=== PATIENT | male | born 1960 | race Two or more races ===

== ENCOUNTER 2017-09-26 14:14 | Emergency (ER) | payer OTHER ==
[~2017-09-26] VITALS: Ht 165.1 cm; Wt 69.4 kg
[~2017-09-26 14:14] MED LIST: AUGMENTIN 875-1 EAC1 ORAL; IBUPROFEN400 MG ORAL; NEXAFED30 MG ORAL; NORCO 5-325 TA1 EACH ORAL
[2017-09-26] MEDS ORDERED: COLACE100 MG ORAL (14:57)
--- NOTE | 2017-09-26 15:01 | Emergency Room Report ---
History of Present Illness General Chief Complaint: General Complaint Source: Patient Present Illness HPI Patient is a 57-year-old male who presented after increased discomfort to his hernias. Patient states that his hernias had been worsened after recent upper respiratory infection where he was having increased cough. Patient denies any current cough. He states that the pain had recurred somewhat subsided. Patient states that his hernias reduce when he lies down flat however when he stands he noticed more discomfort. He denied any fever. He denied any vomiting.The patient denies smoking. He denies heavy lifting Allergies: Coded Allergies: No Known Allergies (Unverified , 06/22/16) Patient History Past Medical History: see triage record Reviewed Nursing Documentation: PMH: Agreed; PSxH: Agreed Nursing Documentation-PMH Past Medical History: No History, Except For Hx Gastrointestinal Problems: Yes - Liver cirrhosis, hernia repair Review of Systems All Other Systems: negative except mentioned in HPI Physical Exam Vital Signs Date Time Temp Pulse Resp B/P (MAP) Pulse Ox O2 Delivery O2 Flow Rate FiO2 09/26/17 14:32 98.6 89 16 127/78 97 Room Air 98.6 Sp02 EP Interpretation: reviewed, normal General Appearance: normal inspection, well appearing, no apparent distress, alert, GCS 15 Head: atraumatic ENT: normal ENT inspection, hearing grossly normal, normal voice Neck: normal inspection, full range of motion, supple, no bony tend Respiratory: normal inspection, lungs clear, normal breath sounds, no respiratory distress, no retraction, no wheezing Cardiovascular #1: regular rate, rhythm, no edema Gastrointestinal: normal inspection, normal bowel sounds, non tender, soft, no guarding, hernia - bilateral inguinal hernia easily reducible without any evident erythema, bowel sounds normal Genitourinary: no CVA tenderness Musculoskeletal: normal inspection, back normal, normal range of motion Neurologic: normal inspection, alert, oriented x3, responsive, district medical examiner III-XII nml as tested, speech normal Psychiatric: normal inspection, judgement/insight normal, mood/affect normal Skin: normal inspection, normal color, no rash Medical Decision Making Diagnostic Impression: Primary Impression: Bilateral inguinal hernia ER Course Patient presented for abdominal pain. Differential diagnoses included ischemic bowel, appendicitis, perforated viscus, abdominal aortic aneurysm, inferior myocardial infarction, viral gastroenteritis, incarcerated hernia. Patient has a benign exam and does not appear to require any further imaging or laboratory testing at this time. The patient has evident bilateral inguinal hernias. His BNP. Easily reducible and show no evidence of incarceration or strangulation. The patient is advised to follow-up with his primary care physician for surgical referral Last Vital Signs Date Time Temp Pulse Resp B/P (MAP) Pulse Ox O2 Delivery O2 Flow Rate FiO2 09/26/17 14:32 98.6 89 16 127/78 97 Room Air 98.6 Status: improved Disposition: HOME, SELF-CARE Condition: Stable Scripts Docusate Sodium* (COLACE*) 100 Mg Capsule 100 MG ORAL TWICE A DAY, #60 CAP Prov: Sudarshan Orlando 09/26/17 Patient Instructions: Inguinal Hernia, Adult Sudarshan Orlando Sep 26, 2017 15:01
[2017-09-26 15:04] VITALS: BP 124/79
[2017-09-26 15:12] LABS: APPEARANCE,URINE CLEAR; BILIRUBIN, URINE NEGATIVE (NEGATIVE); GLUCOSE, URINE (UA) NEGATIVE (NEGATIVE); KETONES,URINE NEGATIVE (NEGATIVE); LEUKOCYTE ESTERASE ,URINE NEGATIVE (NEGATIVE); NITRITE,URINE NEGATIVE (NEGATIVE); PH,URINE 7 (4.5-8.0); PROTEIN,URINE NEGATIVE (NEGATIVE); UROBILINOGEN,URINE 1 MG/DL (0.0-1.0)
[2017-09-26 15:14] LABS: COLOR,URINE YELLOW
== END 2017-09-26 15:04 | disposition home or self-care (01) ==
LOC: EMR 15:00
DX: K40.90 Unilateral inguinal hernia, without obstruction or gangrene, not specified as recurrent (principal); K74.60 Unspecified cirrhosis of liver
CPT/HCPCS: 81003; 99283

== ENCOUNTER 2017-12-21 14:30 | Inpatient (IN) | payer MEDICAID ==
[~2017-12-21] VITALS: Ht 175.3 cm; Wt 82.6 kg
[2017-12-21] VITALS (34 sets, daily range): BP systolic 45–126; BP diastolic 11–103
[~2017-12-21 14:30] MED LIST changes: +COLACE100 MG ORAL; +Octreotide Acetate 500 MCG in Sodium Chloride 500ML 499 ML IV SCH; +Pantoprazole Inj IVP ONE; +SandoSTATIN 50mcg Inj IVP ONE
[2017-12-21] MEDS ORDERED: Pantoprazole Inj ONE (14:44)
[2017-12-21] MEDS ORDERED: SandoSTATIN 500mcg Inj ONE (14:45)
[2017-12-21 14:53] LABS: HEMOGLOBIN 8.5 G/DL (14.2-18.0); MEAN CORPUSCULAR VOLUME 95 FL (80-99); PLATELET COUNT 15 K/UL (150-450); RED BLOOD COUNT 2.72 M/UL (4.70-6.10); RED CELL DISTRIBUTION WIDTH 13.6 % (11.6-14.8); WHITE BLOOD COUNT 7.9 K/UL (4.8-10.8)
[2017-12-21 15:00] LABS: INR 1.6 (0.9-1.1)
[2017-12-21] MEDS ORDERED: LORazepam Inj 2mg/ml 1ml IV ONE (15:00)
[2017-12-21 15:04] LABS: ANION GAP 16 mmol/L (5-15); BLOOD UREA NITROGEN 9 mg/dL (7-18); CALCIUM 7.1 MG/DL (8.5-10.1); CARBON DIOXIDE 19 MMOL/L (21-32); CHLORIDE 104 MMOL/L (98-107); CREATININE 1.2 MG/DL (0.55-1.30); POTASSIUM 2.9 MMOL/L (3.5-5.1); SODIUM 139 MMOL/L (136-145)
[2017-12-21] MEDS ORDERED: LORazepam Inj 2mg/ml 1ml ONE (15:12)
[2017-12-21 15:14] LABS: ALANINE AMINOTRANSFERASE 78 U/L (12-78); ALBUMIN 2.4 G/DL (3.4-5.0); ALBUMIN/GLOBULIN RATIO 0.7 (1.0-2.7); ALKALINE PHOSPHATASE 111 U/L (46-116); ASPARTATE AMINO TRANSFERASE 214 U/L (15-37); BILIRUBIN,TOTAL 2.5 MG/DL (0.2-1.0); TRIGLYCERIDES 89 MG/DL (30-150)
[2017-12-21 15:16] LABS: BILIRUBIN,DIRECT 1.5 MG/DL (0.0-0.3)
[2017-12-21 16:38] LABS: BILIRUBIN, URINE 3+ (NEGATIVE); COLOR,URINE BROWN; GLUCOSE, URINE (UA) 2+ (NEGATIVE); KETONES,URINE 2+ (NEGATIVE); LEUKOCYTE ESTERASE ,URINE 1+ (NEGATIVE); NITRITE,URINE POSITIVE (NEGATIVE); PH,URINE 6 (4.5-8.0); PROTEIN,URINE 3+ (NEGATIVE); UROBILINOGEN,URINE 8 MG/DL (0.0-1.0)
[2017-12-21 16:40] LABS: APPEARANCE,URINE SLIGHTLY CLOUDY
[2017-12-21] MEDS ORDERED: NKM (17:15)
[2017-12-21] MEDS ORDERED: Pantoprazole Inj IVP SCH (18:30)
[2017-12-21] MEDS ORDERED: D5NS 1,000 ML IV SCH (18:30)
[2017-12-21] MEDS: Octreotide Acetate 500 MCG in Sodium Chloride 500ML 499 ML IV SCH (19:41)
[2017-12-21 20:11] LABS: HEMATOCRIT 19.7 % (42.0-52.0); MEAN CORPUSCULAR VOLUME 98 FL (80-99); PLATELET COUNT 13 K/UL (150-450); RED CELL DISTRIBUTION WIDTH 16.5 % (11.6-14.8); WHITE BLOOD COUNT 7.7 K/UL (4.8-10.8)
[2017-12-21 20:39] LABS: HEMOGLOBIN 5.9 G/DL (14.2-18.0)
--- NOTE | 2017-12-21 20:42 | Pulmonolgy Critical Care Note ---
Critical Care - Asmt/Plan Problems: (1) Alcoholism (2) Thrombocytopenia (3) Anemia (4) Alcoholic cirrhosis (5) Endotracheally intubated (6) Shock (7) Hematemesis (8) UTI (urinary tract infection) Respiratory: monitor respiratory rate, CXR, ABG Cardiac: continue to monitor HR/BP, other - volume recussitate, start peripheral DA, once platelets infused will get a central line and start NE or SALOME Renal: F/U I&O, keep IV fluid, check electrolytes Infectious Disease: check cultures, continue antibiotics - zosyn Gastrointestinal: hold feedings, other - Octretoide gtt, protonix gtt, NGT to gravity, GI evaluation, transfuse Endocrine: monitor blood sugar Hematologic: monitor H/H - massive transfusion protocol intiated, S/P 2U PRBC, repeat CBC pending, awaiting platelets and FFP Neurologic: keep patient comfortable - Monitror MS Affect: other - Banana bag, MVI/thiamine/folate, monitor for w/draw Prophylaxis: Protonix - gtt, SCDs Disposition: keep in ICU Time Spent (Minutes): other - 180 Notes Reviewed: other - ER Discussed with: nurses, consultants, family member Critical Care - Objective Last 24 Hour Vital Signs Date Time Temp Pulse Resp B/P (MAP) Pulse Ox O2 Delivery O2 Flow Rate FiO2 12/21/17 20:01 117 24 Mechanical Ventilator 30 12/21/17 19:30 118 26 65 12/21/17 19:30 117 24 Mechanical Ventilator 30 12/21/17 18:22 119 28 126/86 99 Mechanical Ventilator 30 12/21/17 18:00 30.0 12/21/17 17:55 94.5 115 26 70/55 100 Mechanical Ventilator 15.0 30 94.5 12/21/17 16:55 94.5 115 24 94.5 12/21/17 16:47 15.0 30 12/21/17 16:40 94.4 108 25 94.4 12/21/17 16:30 94.4 111 26 81/40 100 Mechanical Ventilator 15.0 30 94.4 12/21/17 16:00 112 21 83/42 100 Mechanical Ventilator 15.0 60 12/21/17 15:59 98.4 120 18 75/48 100 Mechanical Ventilator 15.0 60 98.4 12/21/17 15:41 15.0 60 12/21/17 15:30 18 75/48 18 15:30 120 18 75/48 100 Mechanical Ventilator 15.0 60 12/21/17 15:15 18 94/53 12/21/17 15:00 115 20 95/44 99 Mechanical Ventilator 15.0 60 12/21/17 15:00 20 95/44 18 15:00 20 95/44 12/21/17 14:56 114 34 Mechanical Ventilator 100 12/21/17 14:56 117 34 60 12/21/17 14:30 15.0 100 12/21/17 14:30 98.4 129 18 89/61 100 Mechanical Ventilator 15.0 100 98.4 12/21/17 14:05 98.5 110 16 76/47 99 Room Air 98.4 Status: sedated, other - intubated Condition: critical HEENT: atraumatic, normocephalic, other - ETT, NGT Neck: full ROM Lungs: clear Heart: HR/BP unstable Abdomen: soft, non-tender, active bowel sounds Extremities: no C/C/E, other - PIV x 2 18G A/C Blood Sugars: BS controlled Critical Care - Subjective ROS Limited/Unobtainable: Yes ICU Day: 1 Intubation Day: 1 Interval Events: 57 M h/o EtOH cirrhosis BIBA from home with hematemesis/large volume Hypotensive in ED with hb 8.5 and Plt 15 Intubated for airway protection Hypotensive in ICU Per last hospitalized 2 years ago with similar c/o Continues to drink EtOH daily Condition: critical IV Access: peripheral - 18G IV x2 EKG Rhythm: Sinus Tachycardia FI02: 30 Vent Support Breath Rate: 16 Vent Support Mode: AC Vent Tidal Volume: 500 Sputum Amount: Small PIP: 10 Fluids: D5NS @ 100 + another NS wide open Drips: Octreotide and Protonix Subjective: Non obtainable ET-Tube: 7.5 ET Position: 24 Cj Tapia MD Dec 21, 2017 20:42
[2017-12-21] MEDS ORDERED: DOPamine 400mg/250ml 0 ML IV ONE (20:46)
[2017-12-21] MEDS ORDERED: DOPamine 400mg/250ml 250 ML IV ONE (20:48)
[2017-12-21] MEDS: DOPamine 400mg/250ml 250 ML IV SCH (20:51)
[2017-12-21 21:02] LABS: ANION GAP 25 mmol/L (5-15); BLOOD UREA NITROGEN 9 mg/dL (7-18); CALCIUM 5.8 MG/DL (8.5-10.1); CARBON DIOXIDE 8 MMOL/L (21-32); CHLORIDE 111 MMOL/L (98-107); CREATININE 1.6 MG/DL (0.55-1.30); POTASSIUM 3.9 MMOL/L (3.5-5.1); SODIUM 144 MMOL/L (136-145)
[2017-12-21 21:03] LABS: INR 2.3 (0.9-1.1)
[2017-12-21] MEDS: Pantoprazole 80 MG in NS 250 ML IV SCH (21:38)
[2017-12-21] MEDS ORDERED: Etomidate 40mg/20ml Inj IV ONE (21:48)
[2017-12-21] MEDS ORDERED: Succinylcholine 20mg/ml 10ml vial ONE (21:48)
[2017-12-21] MEDS ORDERED: Sodium Bicarbonate 50ml Carp ONE ×2 (23:06→23:14)
[2017-12-21] MEDS ORDERED: Lidocaine 1% Plain 30 ml INJ ONE ×2 (23:12→23:15)
[2017-12-21] MEDS: SODIUM BICARBONATE IV SCH (23:42)
[2017-12-21] MEDS: D5NS IV SCH (23:42)
[2017-12-21] MEDS ORDERED: Vasopressin 100 UNITS in NS 95 ML IV SCH (23:45)
[2017-12-21] MEDS ORDERED: Levophed 4mg/4mL Inj IV ONE (23:51)
--- NOTE | 2017-12-21 23:57 | History and Physical ---
History of Present Illness General Date patient seen: Dec 21, 2017 Time patient seen: 15:00 Reason for Hospitalization: Vomiting Present Illness HPI This is a 57 y/o male with a PMH of alcohol abuse and liver cirrhosis due to alcoholism who presented to the ER with projectile bright red bleed emesis. Patient was seen in the ED and was obtunded so further information was gathered from family at bedside and chart. Per family, patient is a chronic alcohol abuser and has been drinking and smoking for the last 6 months daily and not eating. Patient has had this happen to him once prior about a year ago. Per family, patient does not take any prescription medications at home. Today, patient had taken a shot of vodka and subsequently started vomiting up blood, which brought him to the ER. In the ED, patient's vitals were noted to be in hypovolemic shock with hypotension and tachycardia. No fevers were noted. Patient's platelets were noted to be 15 and Hgb 8.6. INR was also elevated at 1.6. Patient was given aggressive IV boluses and an NG tube was placed to gravity with blood coming out. FFPs and pRBCs have been ordered per ER physician and octreotide gtt was started. Patient was further endotracheally intubated. Allergies: Coded Allergies: No Known Allergies (Unverified , 12/21/17) Medication History Scheduled No Known Medications* (NKM - No Known Medications*), 0 ., (Reported) Patient History Limited by: medical condition History Provided By: Family Member, Medical Record Healthcare decision maker SHASHI PABLO () Resuscitation status Full Code Advanced Directive on File No Review of Systems ROS Narrative Unable to obtain due to medical condition Physical Exam General Appearance: moderate distress, other - obtunded Lines, tubes and drains: ngt HEENT: normocephalic, atraumatic, PERRL Neck: non-tender, normal alignment, supple Respiratory/Chest: chest wall non-tender, lungs clear, normal breath sounds Cardiovascular/Chest: normal peripheral pulses, regular rhythm, tachycardia Abdomen: normal bowel sounds, non tender, soft Skin Exam: normal pigmentation, warm/dry Neurologic: doll surgeon II-XII grossly normal, no motor/sensory deficits Last 24 Hour Vital Signs Date Time Temp Pulse Resp B/P (MAP) Pulse Ox O2 Delivery O2 Flow Rate FiO2 12/21/17 23:22 112 22 30 12/21/17 21:15 115 25 65 18 20:51 55/17 12/21/17 20:01 117 24 Mechanical Ventilator 30 12/21/17 20:00 30 12/21/17 19:30 118 26 65 18 19:30 117 24 Mechanical Ventilator 30 12/21/17 18:22 119 28 126/86 99 Mechanical Ventilator 30 12/21/17 18:00 30.0 12/21/17 17:55 94.5 115 26 70/55 100 Mechanical Ventilator 15.0 30 94.5 12/21/17 16:55 94.5 115 24 94.5 12/21/17 16:47 15.0 30 12/21/17 16:40 94.4 108 25 94.4 12/21/17 16:30 94.4 111 26 81/40 100 Mechanical Ventilator 15.0 30 94.4 12/21/17 16:00 112 21 83/42 100 Mechanical Ventilator 15.0 60 12/21/17 15:59 98.4 120 18 75/48 100 Mechanical Ventilator 15.0 60 98.4 12/21/17 15:41 15.0 60 12/21/17 15:30 18 75/48 12/21/17 15:30 120 18 75/48 100 Mechanical Ventilator 15.0 60 12/21/17 15:15 18 94/53 12/21/17 15:00 115 20 95/44 99 Mechanical Ventilator 15.0 60 12/21/17 15:00 20 95/44 12/21/17 15:00 20 95/44 12/21/17 14:56 114 34 Mechanical Ventilator 100 12/21/17 14:56 117 34 60 12/21/17 14:30 15.0 100 12/21/17 14:30 98.4 129 18 89/61 100 Mechanical Ventilator 15.0 100 98.4 12/21/17 14:05 98.5 110 16 76/47 99 Room Air 98.4 Laboratory Tests Test 12/21/17 14:25 12/21/17 16:18 12/21/17 16:33 12/21/17 19:50 White Blood Count 7.9 K/UL (4.8-10.8) 7.7 K/UL (4.8-10.8) Red Blood Count 2.72 M/UL (4.70-6.10) L 2.00 M/UL (4.70-6.10) L Hemoglobin 8.5 G/DL (14.2-18.0) L 5.9 G/DL (14.2-18.0) Hematocrit 26.0 % (42.0-52.0) L 19.7 % (42.0-52.0) L Mean Corpuscular Volume 95 FL (80-99) 98 FL (80-99) Mean Corpuscular Hemoglobin 31.3 PG (27.0-31.0) H 29.7 PG (27.0-31.0) Mean Corpuscular Hemoglobin Concent 32.9 G/DL (32.0-36.0) 30.2 G/DL (32.0-36.0) L Red Cell Distribution Width 13.6 % (11.6-14.8) 16.5 % (11.6-14.8) H Platelet Count 15 K/UL (150-450) L 13 K/UL (150-450) L Mean Platelet Volume 16.3 FL (6.5-10.1) H 9.8 FL (6.5-10.1) Neutrophils (%) (Auto) % (45.0-75.0) % (45.0-75.0) Lymphocytes (%) (Auto) % (20.0-45.0) % (20.0-45.0) Monocytes (%) (Auto) % (1.0-10.0) % (1.0-10.0) Eosinophils (%) (Auto) % (0.0-3.0) % (0.0-3.0) Basophils (%) (Auto) % (0.0-2.0) % (0.0-2.0) Differential Total Cells Counted 100 100 Neutrophils % (Manual) 61 % (45-75) 84 % (45-75) H Lymphocytes % (Manual) 33 % (20-45) 6 % (20-45) L Monocytes % (Manual) 3 % (1-10) 3 % (1-10) Eosinophils % (Manual) 1 % (0-3) 0 % (0-3) Basophils % (Manual) 2 % (0-2) 0 % (0-2) Band Neutrophils 0 % (0-8) 7 % (0-8) Platelet Estimate Decreased L Decreased L Platelet Morphology Normal Normal Hypochromasia 1+ 2+ Anisocytosis 1+ 1+ Prothrombin Time 16.7 SEC (9.30-11.50) H 23.9 SEC (9.30-11.50) H Prothromb Time International Ratio 1.6 (0.9-1.1) H 2.3 (0.9-1.1) H Activated Partial Thromboplast Time 34 SEC (23-33) H 101 SEC (23-33) H Sodium Level 139 MMOL/L (136-145) 144 MMOL/L (136-145) Potassium Level 2.9 MMOL/L (3.5-5.1) L 3.9 MMOL/L (3.5-5.1) Chloride Level 104 MMOL/L (98-107) 111 MMOL/L (98-107) H Carbon Dioxide Level 19 MMOL/L (21-32) L 8 MMOL/L (21-32) *L Anion Gap 16 mmol/L (5-15) H 25 mmol/L (5-15) H Blood Urea Nitrogen 9 mg/dL (7-18) 9 mg/dL (7-18) Creatinine 1.2 MG/DL (0.55-1.30) 1.6 MG/DL (0.55-1.30) H Estimat Glomerular Filtration Rate > 60 mL/min (>60) 45.1 mL/min (>60) Glucose Level 193 MG/DL (74-106) H 402 MG/DL (74-106) #H Calcium Level 7.1 MG/DL (8.5-10.1) L 5.8 MG/DL (8.5-10.1) *L Total Bilirubin 2.5 MG/DL (0.2-1.0) H Direct Bilirubin 1.5 MG/DL (0.0-0.3) H Aspartate Amino Transf (AST/SGOT) 214 U/L (15-37) H Alanine Aminotransferase (ALT/SGPT) 78 U/L (12-78) Alkaline Phosphatase 111 U/L (46-116) Total Protein 6.0 G/DL (6.4-8.2) L Albumin 2.4 G/DL (3.4-5.0) L Globulin 3.6 g/dL Albumin/Globulin Ratio 0.7 (1.0-2.7) L Triglycerides Level 89 MG/DL (30-150) Lipase 217 U/L (73-393) Urine Color Brown Urine Appearance Slightly cloudy Urine pH 6 (4.5-8.0) Urine Specific [place] 1.015 (1.005-1.035) Urine Protein 3+ (NEGATIVE) H Urine Glucose (UA) 2+ (NEGATIVE) H Urine Ketones 2+ (NEGATIVE) H Urine Occult Blood 2+ (NEGATIVE) H Urine Nitrite Positive (NEGATIVE) H Urine Bilirubin 3+ (NEGATIVE) H Urine Ictotest Positive Urine Urobilinogen 8 MG/DL (0.0-1.0) H Urine Leukocyte Esterase 1+ (NEGATIVE) H Urine RBC 10-15 /HPF (0 - 0) H Urine WBC 5-10 /HPF (0 - 0) H Urine Squamous Epithelial Cells None /LPF (NONE/OCC) Urine Amorphous Sediment Few /LPF (NONE) H Urine Bacteria Moderate /HPF (NONE) H Arterial Blood pH 7.230 (7.350-7.450) Arterial Blood Partial Pressure CO2 25.7 mmHg (35.0-45.0) L Arterial Blood Partial Pressure O2 330.4 mmHg (75.0-100.0) H Arterial Blood HCO3 10.4 mmol/L (22.0-26.0) L Arterial Blood Oxygen Saturation 98.9 % (92.0-98.0) H Arterial Blood Base Excess -15.6 Rom Test Positive Magnesium Level 1.5 MG/DL (1.8-2.4) L Test 12/21/17 20:32 Arterial Blood pH 6.713 (7.350-7.450) Arterial Blood Partial Pressure CO2 25.1 mmHg (35.0-45.0) L Arterial Blood Partial Pressure O2 134.3 mmHg (75.0-100.0) H Arterial Blood HCO3 3.1 mmol/L (22.0-26.0) L Arterial Blood Oxygen Saturation 95.4 % (92.0-98.0) Arterial Blood Base Excess -30.1 Rom Test Positive Height (Feet): 5 Height (Inches): 9.00 Weight (Pounds): 174 Medications Current Medications Medications (Trade) Dose Ordered Sig/Maria Ines Route PRN Reason Start Time Stop Time Status Last Admin Dose Admin Dextrose/Sodium Chloride 1,000 ml @ 200 mls/hr Q5H IV 12/22/17 20:38 01/20/18 20:37 Dopamine HCl/ Dextrose 250 ml @ 0 mls/hr Q24H IV 12/21/17 20:46 01/20/18 20:45 12/21/17 20:51 Folic Acid 1 mg/ Magnesium Sulfate 2000 mg/ Multivitamins 10 ml/Sodium Chloride 1,014.2 ml @ 100 mls/ hr Q24H IV 12/21/17 21:00 01/20/18 20:59 Norepinephrine Bitartrate 4 mg/ Dextrose 250 ml @ 0 mls/hr Q24H IV 12/21/17 23:45 01/20/18 23:44 Octreotide Acetate 500 mcg/ Sodium Chloride 500 ml @ 50 mls/hr Q10H IV 12/21/17 18:45 01/20/18 18:44 12/21/17 19:41 Pantoprazole 80 mg/Sodium Chloride 250 ml @ 25 mls/hr Q10H IV 12/21/17 22:00 01/20/18 21:59 12/21/17 21:38 Piperacillin Sod/ Tazobactam Sod 3.375 gm/Dextrose 110 ml @ 27.5 mls/hr Q8H IVPB 12/21/17 20:00 12/28/17 19:59 Potassium Chloride 100 ml @ 100 mls/hr Q1H IVPB 12/21/17 19:30 12/22/17 01:29 12/21/17 22:36 Sodium Bicarbonate 150 ml/Dextrose/ Sodium Chloride 1,150 ml @ 200 mls/hr Q5H45M IV 12/21/17 23:00 01/20/18 22:59 12/21/17 23:42 Thiamine HCl 100 mg/Sodium Chloride 56 ml @ 112 mls/hr Q24H IVPB 12/21/17 21:00 01/20/18 20:59 Vasopressin 100 units/Sodium Chloride 100 ml @ 0 mls/hr Q24H IV 12/21/17 23:45 01/20/18 23:44 Assessment/Plan Problem List: (1) Thrombocytopenia ICD Codes: D69.6 - Thrombocytopenia, unspecified SNOMED: 739060492 (2) Shock ICD Codes: R57.9 - Shock, unspecified SNOMED: 96985341 (3) Alcoholic cirrhosis ICD Codes: K70.30 - Alcoholic cirrhosis of liver without ascites SNOMED: 794981691 (4) Alcoholism ICD Codes: F10.20 - Alcohol dependence, uncomplicated SNOMED: 7288368 (5) Hematemesis ICD Codes: K92.0 - Hematemesis SNOMED: 6470550 (6) Anemia ICD Codes: D64.9 - Anemia, unspecified SNOMED: 870446401 (7) Transaminitis ICD Codes: R74.0 - Nonspecific elevation of levels of transaminase and lactic acid dehydrogenase [LDH] SNOMED: 942504932, 023111762 (8) Hyperkalemia ICD Codes: E87.5 - Hyperkalemia SNOMED: 11847302 (9) UTI (urinary tract infection) ICD Codes: N39.0 - Urinary tract infection, site not specified SNOMED: 43796407 (10) Endotracheally intubated ICD Codes: Z97.8 - Presence of other specified devices SNOMED: 088432669 Status: hypovolemia, other - unstable Assessment/Plan - Admit to ICU - GI consulted - Consider psych consult when stable - Octreotide gtt - PPi gtt - pressors to maintain MAP > 65 - aggressive IV hydration/boluses - NG tube to gravity - transfuse with FFP and pRBCs prn - monitor CBC serially q6hr - IV folate and thiamine. Multivitamin PO when stable - Trend LFTs - Endoscopic intervention when stable - vent support - monitor and correct electrolytes prn - IV zosyn for UTI - F/u urine cx - pain control and supportive care - SW consult for rehab consideration DVT Prophylaxis: SCD Code Status: Full Hospital Classification Declaration: Based on this initial evaluation, and depending on the patient's clinical course, I anticipate that this patient will require hospitalization for 3-4 days for shock, GI bleed, and close respiratory/ hemodynamic monitoring. Disposition: Once the patient is stable to leave the hospital, I anticipate the patient will likely be discharged to the following environment: alcoholic rehab I spent 75 minutes on this patient's case, and 45 minutes were dedicated to counseling and/or care coordination. Discussed with patient/family, nursing staff, SW/CM, primary, ED physician, ED nurses, and family at bedside regarding clinical status, treatment course, and disposition planning. Time of note may not reflect time of encounter. Thank you, Dr. Tapia, for this consultation. Pearl Tom NP Dec 21, 2017 23:57
[2017-12-22] VITALS (84 sets, daily range): BP systolic 41–140; BP diastolic 13–107
[2017-12-22] MEDS: Piperacillin/Tazobactam 3.375 GM in D5W 110 ML IVPB SCH ×2 (00:21→04:47)
[2017-12-22] MEDS: Folic Acid 1 MG, Magnesium Sulfate 2,000 MG, Multivitamin - 12 Injection 10 ML in NS w/... IV SCH ×2 (00:26→20:34)
--- NOTE | 2017-12-22 01:20 | Emergency Room Report ---
History of Present Illness General Chief Complaint: Vomiting Source: Patient Present Illness HPI Patient is a 57-year-old male presented after increased hematemesis. Patient reportedly had been drinking vodka earlier in the day. Patient had prior history of cirrhosis. He had been noted to have markedly increased amounts of bright red blood. Patient was noted to be hypotensive by EMS was started on IV fluids. Patient reported having some epigastric pain. He had prior history of inguinal hernia. Patient was noted to have recently become more jaundiced. History is obtained from patient and his . Allergies: Coded Allergies: No Known Allergies (Unverified , 12/21/17) Patient History Past Medical History: see triage record Reviewed Nursing Documentation: PMH: Agreed; PSxH: Agreed Nursing Documentation-PMH Hx Cardiac Problems: No - ETOH ABUSE CERROSIS OF LIVER Review of Systems All Other Systems: limited - by acuity Physical Exam Vital Signs Date Time Temp Pulse Resp B/P (MAP) Pulse Ox O2 Delivery O2 Flow Rate FiO2 12/21/17 14:05 98.5 110 16 76/47 99 Room Air 98.4 12/21/17 14:30 15.0 100 Sp02 EP Interpretation: reviewed, normal General Appearance: alert, severe distress, Chronically Ill Eyes: bilateral eye scleral icterus ENT: normal voice, other - blood in mouth Respiratory: lungs clear, no rhonchi Cardiovascular #1: tachycardia Gastrointestinal: non tender, soft Rectal: deferred Musculoskeletal: normal inspection, back normal Neurologic: alert Psychiatric: normal inspection Procedures Critical Care Time Critical Care Time Patient had a critical medical condition which untreated could potentially result in life or limb threatening injury. Total critical care time excluding procedures approximately 45 minutes. Medical Decision Making Diagnostic Impression: Primary Impression: Hematemesis Additional Impressions: Thrombocytopenia Alcoholic cirrhosis Shock Alcoholism ER Course The patient presented for upper GI bleeding. Differential diagnosis included was not limited to gastritis, peptic ulcer disease, esophageal varices, coagulopathy, anemia among others. Because of complexity of patient's case laboratory testing and imaging studies were ordered.The patient noted have massive hematemesis. He was started on IV fluids initially. Patient was started on IV Protonix as well as Sandostatin drip of her probable esophageal varices. Patient was noted to be initially hypotensive. Dr. Webster was contacted for GI consult. Dr. Arpan Tapia was was contacted for inpatient management due to panel physician. Patient was noted to have massive hematemesis and coagulopathy as well as thrombocytopenia. Fresh frozen plasma was ordered. The platelets were also ordered due to thrombocytopenia. The patient was intubated for airway protection shortly after arrival.Chest x-ray one view interpreted by me showed normal cardiac size with adequate ET tube placement. No evident infiltrates. The nasogastric tube was placed with large amount of bright red blood. Labs Test 12/21/17 14:25 12/21/17 16:18 12/21/17 19:50 12/21/17 20:32 Total Bilirubin 2.5 MG/DL (0.2-1.0) Direct Bilirubin 1.5 MG/DL (0.0-0.3) Aspartate Amino Transf (AST/SGOT) 214 U/L (15-37) Alanine Aminotransferase (ALT/SGPT) 78 U/L (12-78) Alkaline Phosphatase 111 U/L (46-116) Total Protein 6.0 G/DL (6.4-8.2) Albumin 2.4 G/DL (3.4-5.0) Globulin 3.6 g/dL Albumin/Globulin Ratio 0.7 (1.0-2.7) Triglycerides Level 89 MG/DL (30-150) Lipase 217 U/L (73-393) Urine Color Brown Urine Appearance Slightly cloudy Urine pH 6 (4.5-8.0) Urine Specific [place] 1.015 (1.005-1.035) Urine Protein 3+ (NEGATIVE) Urine Glucose (UA) 2+ (NEGATIVE) Urine Ketones 2+ (NEGATIVE) Urine Occult Blood 2+ (NEGATIVE) Urine Nitrite Positive (NEGATIVE) Urine Bilirubin 3+ (NEGATIVE) Urine Ictotest Positive Urine Urobilinogen 8 MG/DL (0.0-1.0) Urine Leukocyte Esterase 1+ (NEGATIVE) Urine RBC 10-15 /HPF (0 - 0) Urine WBC 5-10 /HPF (0 - 0) Urine Squamous Epithelial Cells None /LPF (NONE/OCC) Urine Amorphous Sediment Few /LPF (NONE) Urine Bacteria Moderate /HPF (NONE) White Blood Count 7.7 K/UL (4.8-10.8) Red Blood Count 2.00 M/UL (4.70-6.10) Hemoglobin 5.9 G/DL (14.2-18.0) Hematocrit 19.7 % (42.0-52.0) Mean Corpuscular Volume 98 FL (80-99) Mean Corpuscular Hemoglobin 29.7 PG (27.0-31.0) Mean Corpuscular Hemoglobin Concent 30.2 G/DL (32.0-36.0) Red Cell Distribution Width 16.5 % (11.6-14.8) Platelet Count 13 K/UL (150-450) Mean Platelet Volume 9.8 FL (6.5-10.1) Neutrophils (%) (Auto) % (45.0-75.0) Lymphocytes (%) (Auto) % (20.0-45.0) Monocytes (%) (Auto) % (1.0-10.0) Eosinophils (%) (Auto) % (0.0-3.0) Basophils (%) (Auto) % (0.0-2.0) Differential Total Cells Counted 100 Neutrophils % (Manual) 84 % (45-75) Lymphocytes % (Manual) 6 % (20-45) Monocytes % (Manual) 3 % (1-10) Eosinophils % (Manual) 0 % (0-3) Basophils % (Manual) 0 % (0-2) Band Neutrophils 7 % (0-8) Platelet Estimate Decreased Platelet Morphology Normal Hypochromasia 2+ Anisocytosis 1+ Prothrombin Time 23.9 SEC (9.30-11.50) Prothromb Time International Ratio 2.3 (0.9-1.1) Activated Partial Thromboplast Time 101 SEC (23-33) Sodium Level 144 MMOL/L (136-145) Potassium Level 3.9 MMOL/L (3.5-5.1) Chloride Level 111 MMOL/L (98-107) Carbon Dioxide Level 8 MMOL/L (21-32) Anion Gap 25 mmol/L (5-15) Blood Urea Nitrogen 9 mg/dL (7-18) Creatinine 1.6 MG/DL (0.55-1.30) Estimat Glomerular Filtration Rate 45.1 mL/min (>60) Glucose Level 402 MG/DL (74-106) Calcium Level 5.8 MG/DL (8.5-10.1) Magnesium Level 1.5 MG/DL (1.8-2.4) Arterial Blood pH 6.713 (7.350-7.450) Arterial Blood Partial Pressure CO2 25.1 mmHg (35.0-45.0) Arterial Blood Partial Pressure O2 134.3 mmHg (75.0-100.0) Arterial Blood HCO3 3.1 mmol/L (22.0-26.0) Arterial Blood Oxygen Saturation 95.4 % (92.0-98.0) Arterial Blood Base Excess -30.1 Rom Test Positive EKG Diagnostic Results Rate: tachycardiac Rhythm: NSR ST Segments: no acute changes Last Vital Signs Date Time Temp Pulse Resp B/P (MAP) Pulse Ox O2 Delivery O2 Flow Rate FiO2 12/22/17 00:37 Mechanical Ventilator 12/22/17 00:32 109 34 51/27 77 30 12/22/17 00:00 92.2 92.2 12/21/17 18:00 30.0 Status: unchanged Disposition: ADMITTED INPATIENT Condition: Critical Referrals: YODIT DUARTE M.D. (PCP) Sudarshan Orlando MD Dec 22, 2017 01:20
--- NOTE | 2017-12-22 01:24 | Emergency Room Report ---
History of Present Illness General Chief Complaint: Vomiting Source: Patient Present Illness Allergies: Coded Allergies: No Known Allergies (Unverified , 12/21/17) Nursing Documentation-PMH Hx Cardiac Problems: No - ETOH ABUSE CERROSIS OF LIVER Physical Exam Vital Signs Date Time Temp Pulse Resp B/P (MAP) Pulse Ox O2 Delivery O2 Flow Rate FiO2 12/21/17 14:05 98.5 110 16 76/47 99 Room Air 98.4 12/21/17 14:30 15.0 100 Procedures Central Line Central Line : Consent: Emergent Central Line Lumen: triple Maximal Sterile Barrier Tech: yes cap, yes mask, yes sterile gown, yes sterile gloves, yes large sterile sheet, yes hand hygiene, yes chlorhexidine prep Central Line Postion: femoral (R) Anesthesia: local Complications: none Central Line Post Position: sutured, good blood return Attempts: One Patient Tolerated: Well Complications: None Medical Decision Making Diagnostic Impression: Primary Impression: Hematemesis Additional Impressions: Alcoholism Alcoholic cirrhosis Thrombocytopenia Shock Last Vital Signs Date Time Temp Pulse Resp B/P (MAP) Pulse Ox O2 Delivery O2 Flow Rate FiO2 12/22/17 01:12 111 23 30 12/22/17 00:37 Mechanical Ventilator 12/22/17 00:32 51/27 77 12/22/17 00:00 92.2 92.2 12/21/17 18:00 30.0 Disposition: ADMITTED INPATIENT Condition: Critical Referrals: YODIT DUARTE M.D. (PCP) Sudarshan Orlando MD Dec 22, 2017 01:24
--- NOTE | 2017-12-22 02:00 | Consultation ---
DATE OF CONSULTATION: 12/21/2017 GASTROENTEROLOGY CONSULTATION CONSULTING PHYSICIAN: Shameka Frazier M.D. REFERRING PHYSICIAN: Cj Tapia M.D. CHIEF COMPLAINT: I was asked to see this patient by Dr. Cj Tapia for evaluation of acute gastrointestinal bleeding. HISTORY OF PRESENT ILLNESS: The patient is a 57-year-old man who is reportedly a long-term alcoholic with cirrhosis, who comes into the hospital with one-day history of acute upper gastrointestinal bleeding. [facility] and has been already intubated. I was called earlier today and discussed the management of the patient with emergency room physician and subsequently with ICU nursing staff. The patient per family has had a history of cirrhosis, he was diagnosed at the outside hospital about a year ago. He still drinks actively and in fact, the son stated that he found a bottle of vodka in the patient's car. The patient, however, has not had a previous history of gastrointestinal bleeding. On this occasion, because of his profound hematemesis and hypotension, he was intubated for airway support and sent him to the ICU for further care. I advised the emergency room physician to give two units of fresh frozen plasma and two units of plateletpheresis based on the patient's presenting laboratory parameters and clinical presentation. Three units of platelet phoresis have been given and the patient just finished his fourth unit blood, but the fresh frozen plasma has not not arrived yet. The patient is hypotensive and putting out significant amount of bright red blood from his gastric tube. His repeat laboratories were reviewed. He was hypotensive with a systolic blood pressure in the 60-70s, on pressors. His management was discussed again this evening with both the attending physician, Dr. Tapia as well as ICU nurses. The patient himself is obtunded and unable to provide any historical information. PAST MEDICAL HISTORY: Otherwise unremarkable. FAMILY HISTORY: Noncontributory. SOCIAL HISTORY: The patient is and lives in [facility]. He drinks beer and hard liquor on extensive basis. REVIEW OF SYSTEMS: Unobtainable. PHYSICAL EXAMINATION: GENERAL: The patient is well-developed and well-nourished man, seen in the intensive care unit, intubated with orogastric tube putting out bright red blood. HEENT: Normocephalic and atraumatic. Endotracheal tube and orogastric tube were in place. NECK: Supple. CHEST: Clear to auscultation. CARDIOVASCULAR: Tachycardic heart rate. ABDOMEN: Soft without any masses. EXTREMITIES: Revealed no edema. LABORATORY DATA: Reviewed. ASSESSMENT: This patient presents with profound upper gastrointestinal bleeding and profound coagulopathy with hypotension and shock. He is unstable despite massive transfusion and volume resuscitation and intravenous pressor support. The fresh frozen plasma should arrive shortly, which should help with the patient's coagulopathy. The primary concern at this point is to correct the patient's coagulopathy to stop the bleeding, given the presenting platelet count and the ensuing or worsening of INR with transfusions. He is likely to rapidly bleed transfused blood. At this present time, blood pressure is unstable and is on high-dose pressors and he is not a candidate for endoscopic intervention. His only chance for survival would be to medically stabilize him with aggressive and adequate transfusion support especially with respect to correction of coagulopathy. Sandostatin has already been started and he is on Protonix to block the acid. However, I discussed the gravity of the patient's illness with the patient's family earlier today and all questions have been answered. RECOMMENDATIONS: 1. Aggressive transfusion support especially with respect to correction of coagulopathy. 2. Sandostatin. 3. Proton pump inhibitor. 4. IV fluids and pressors as needed to maintain acceptable vital signs. 5. NG tube only to gravity and not to suction. 6. Endoscopic therapy once the patient is stabilized and appropriate for endoscopic intervention. Thank you for asking me to participate in the care of this patient. Shameka Frazier M.D. DR: Evert JOB#: [id number] CC: LISETH
[2017-12-22 02:58] LABS: HEMATOCRIT 12.5 % (42.0-52.0); MEAN CORPUSCULAR VOLUME 99 FL (80-99); PLATELET COUNT 23 K/UL (150-450); RED BLOOD COUNT 1.26 M/UL (4.70-6.10); RED CELL DISTRIBUTION WIDTH 15.9 % (11.6-14.8); WHITE BLOOD COUNT 4.2 K/UL (4.8-10.8)
[2017-12-22] MEDS: DOPamine 400mg/250ml 250 ML IV SCH ×5 (03:03→21:39)
[2017-12-22 03:07] LABS: HEMOGLOBIN 3.6 G/DL (14.2-18.0)
[2017-12-22 03:09] LABS: INR 2.2 (0.9-1.1)
[2017-12-22] MEDS: Octreotide Acetate 500 MCG in Sodium Chloride 500ML 499 ML IV SCH ×2 (03:29→13:20)
[2017-12-22] MEDS: Thiamine HCl 100 MG in NS 55 ML IVPB SCH ×2 (03:30→03:50)
[2017-12-22 03:43] LABS: ALANINE AMINOTRANSFERASE 133 U/L (12-78); ALBUMIN 1.2 G/DL (3.4-5.0); ALBUMIN/GLOBULIN RATIO 0.7 (1.0-2.7); ALKALINE PHOSPHATASE 41 U/L (46-116); ANION GAP 27 mmol/L (5-15); ASPARTATE AMINO TRANSFERASE 642 U/L (15-37); BILIRUBIN,TOTAL 1.5 MG/DL (0.2-1.0); BLOOD UREA NITROGEN 9 mg/dL (7-18); CHLORIDE 114 MMOL/L (98-107); SODIUM 147 MMOL/L (136-145)
[2017-12-22 03:52] LABS: CARBON DIOXIDE 6 MMOL/L (21-32)
[2017-12-22 03:53] LABS: CALCIUM 5.5 MG/DL (8.5-10.1)
[2017-12-22 03:54] LABS: POTASSIUM 6.2 MMOL/L (3.5-5.1)
[2017-12-22] MEDS: D5NS IV SCH (04:47)
[2017-12-22] MEDS: SODIUM BICARBONATE IV SCH (04:47)
--- NOTE | 2017-12-22 06:11 | Emergency Room Report ---
History of Present Illness General Chief Complaint: Vomiting Source: Patient Present Illness Allergies: Coded Allergies: No Known Allergies (Unverified , 12/21/17) Nursing Documentation-PMH Hx Cardiac Problems: No - ETOH ABUSE CERROSIS OF LIVER Physical Exam Vital Signs Date Time Temp Pulse Resp B/P (MAP) Pulse Ox O2 Delivery O2 Flow Rate FiO2 12/21/17 14:05 98.5 110 16 76/47 99 Room Air 98.4 12/21/17 14:30 15.0 100 Procedures Critical Care Time Critical Care Time i. I feel this is a highly complex case requiring extensive working including EKG/Rhythm strip, Xray/CT/US, Blood/urine lab work, repeat exams while in ED, and administration of strong opiates/narcotics for pain control, admission to hospital or close patient follow up. Total time: 30 min bedside evaluation and treatment excludes procedures (EKG). Reason for critical care: GI bleed, hypotensive, need central line Possible complications: hypotension, hypertension, IA, shock, arrhythmias, metabolic acidosis, end organ damage, respiratory failure. Interventions: Central line placement using ultrasound Course: Patient pulled out his central line. Intubated. On pressors. Requiring blood transfusion. History of cirrhosis and GI bleed. Using ultrasound I placed a left femoral central line Consultations: nursing staff, EMS, family Performed by: Dr Suarez Tolerated well condition = critical j. because of unstable vital signs this patient had a condition that could potentially threaten life or limb. I feel this is a critical patient who required my full attention while patient was considered critical. Total Critical Care Time excluding procedures was greater than 35 minutes Central Line Central Line : Consent: Emergent Maximal Sterile Barrier Tech: yes cap, yes mask, yes sterile gown, yes sterile gloves, yes large sterile sheet, yes hand hygiene, yes chlorhexidine prep Central Line Postion: femoral (L) Anesthesia: Lidocaine Complications: none Central Line Post Position: sutured, good blood return Attempts: One Patient Tolerated: Well Complications: None Medical Decision Making Diagnostic Impression: Primary Impression: Hematemesis Additional Impressions: Alcoholism Alcoholic cirrhosis Thrombocytopenia Shock ER Course Patient pulled out his right femoral central line. Patient was restrained but not properly sedated. Using ultrasound I placed her left femoral central line. Requested that sedation be given to ensure the patient does not pull at his line Last Vital Signs Date Time Temp Pulse Resp B/P (MAP) Pulse Ox O2 Delivery O2 Flow Rate FiO2 12/22/17 05:06 100 22 112/79 100 Mechanical Ventilator 100 12/22/17 00:00 92.2 92.2 12/21/17 18:00 30.0 Status: improved Disposition: ADMITTED INPATIENT Condition: Critical Referrals: YODIT DUARTE M.D. (PCP) Christian Suarez MD Dec 22, 2017 06:11
[2017-12-22 07:03] LABS: HEMATOCRIT 16.7 % (42.0-52.0); MEAN CORPUSCULAR VOLUME 99 FL (80-99); PLATELET COUNT 134 K/UL (150-450); RED BLOOD COUNT 1.68 M/UL (4.70-6.10); RED CELL DISTRIBUTION WIDTH 13.9 % (11.6-14.8); WHITE BLOOD COUNT 3.9 K/UL (4.8-10.8)
[2017-12-22 07:14] LABS: INR 1.6 (0.9-1.1)
[2017-12-22 07:15] LABS: HEMOGLOBIN 4.9 G/DL (14.2-18.0)
[2017-12-22 07:24] LABS: ALANINE AMINOTRANSFERASE 209 U/L (12-78); ALBUMIN 1.5 G/DL (3.4-5.0); ALBUMIN/GLOBULIN RATIO 0.8 (1.0-2.7); ALKALINE PHOSPHATASE 42 U/L (46-116); ANION GAP 29 mmol/L (5-15); ASPARTATE AMINO TRANSFERASE 1439 U/L (15-37); BILIRUBIN,TOTAL 1.5 MG/DL (0.2-1.0); BLOOD UREA NITROGEN 9 mg/dL (7-18); CHLORIDE 111 MMOL/L (98-107); PHOSPHORUS 8.3 MG/DL (2.5-4.9); SODIUM 147 MMOL/L (136-145)
[2017-12-22 07:26] LABS: POTASSIUM 6.2 MMOL/L (3.5-5.1)
[2017-12-22 07:27] LABS: CALCIUM 5.8 MG/DL (8.5-10.1); CARBON DIOXIDE 7 MMOL/L (21-32)
[2017-12-22 07:28] LABS: BILIRUBIN,DIRECT 0.5 MG/DL (0.0-0.3)
[2017-12-22] MEDS ORDERED: Midazolam 2mg/2ml Inj IVP PRN ×2 (07:30→07:45)
[2017-12-22] MEDS: Pantoprazole 80 MG in NS 250 ML IV SCH ×2 (07:37→16:37)
[2017-12-22 08:06] LABS: BILIRUBIN,DIRECT 0.7 MG/DL (0.0-0.3)
[2017-12-22 08:16] LABS: ALANINE AMINOTRANSFERASE 134 U/L (12-78); ALBUMIN 1.2 G/DL (3.4-5.0); ALBUMIN/GLOBULIN RATIO 0.8 (1.0-2.7); ALKALINE PHOSPHATASE 41 U/L (46-116); ANION GAP 28 mmol/L (5-15); ASPARTATE AMINO TRANSFERASE 648 U/L (15-37); BILIRUBIN,TOTAL 1.5 MG/DL (0.2-1.0); BLOOD UREA NITROGEN 8 mg/dL (7-18); CHLORIDE 114 MMOL/L (98-107); CREATININE 1.9 MG/DL (0.55-1.30); SODIUM 148 MMOL/L (136-145)
[2017-12-22 08:19] LABS: POTASSIUM 6.2 MMOL/L (3.5-5.1)
[2017-12-22 08:20] LABS: CALCIUM 5.5 MG/DL (8.5-10.1); CARBON DIOXIDE 5 MMOL/L (21-32)
--- NOTE | 2017-12-22 08:32 | Pulmonolgy Critical Care Note ---
Critical Care - Asmt/Plan Problems: (1) Alcoholism (2) Thrombocytopenia (3) Anemia (4) Alcoholic cirrhosis (5) Endotracheally intubated (6) Shock (7) Hematemesis (8) UTI (urinary tract infection) Respiratory: adjust tidal volume - contineu 600 cc, monitor respiratory rate - inc set rate to 30, adjust FIO2 - titrate to keep SaO2 > 90%, ABG - monitor gas exchange, progressive metabolic acidosis, needs dialysis but HD not possible and no CRRT availability at this instituation, patient too unstable to transfer to another hospital Cardiac: continue pressors - maxed out on NE, DA and vaso, continue to monitor HR/BP, other - F/U TTE Renal: F/U I&O, keep IV fluid - but change to 1/5WLo5tidy of HCO3-, check electrolytes, other - Monitor UO, renal consulted Infectious Disease: check cultures - F/U Cx's, continue antibiotics - zosyn Gastrointestinal: hold feedings, other - PPI gtt, octreotide gtt, aggressively replete products, monitor bleeding, F/U GI recs, attempt @ EGD this am Endocrine: monitor blood sugar - D/C D5 from IVF, start insulin drip Hematologic: monitor H/H, other - Transfuse aggressively, S/P multiple U of PRBC, plateltes and FFP Neurologic: keep patient comfortable - Fent gtt titrate to RASS -2 + PRN Versed Prophylaxis: Protonix, SCDs Disposition: keep in ICU Time Spent (Minutes): other - 180 Notes Reviewed: dental office receptionist, cardio Discussed with: nurses, consultants - GI, surgery, zacarias, family member, other - Discussed extensively with family, they understand his downwards trajectory and still opt for full measures Critical Care - Objective Last 24 Hour Vital Signs Date Time Temp Pulse Resp B/P (MAP) Pulse Ox O2 Delivery O2 Flow Rate FiO2 12/22/17 07:31 80/42 12/22/17 07:28 97 24 100 12/22/17 06:45 98 23 41/15 100 Mechanical Ventilator 100 12/22/17 06:30 100 22 100 Mechanical Ventilator 100 12/22/17 06:15 100 23 69/54 100 Mechanical Ventilator 100 12/22/17 06:00 99 24 127/103 100 Mechanical Ventilator 100 12/22/17 05:45 99 24 100/89 Mechanical Ventilator 100 6/17/18 05:30 101 23 140/107 Mechanical Ventilator 100 6/17/18 05:15 92.1 101 23 93/48 100 Mechanical Ventilator 100 92.1 6/17/18 05:06 100 22 112/79 100 Mechanical Ventilator 100 6/17/18 04:49 54/15 6/17/18 04:45 99 21 54/15 100 Mechanical Ventilator 100 6/17/18 04:43 99 28 100 6/17/18 04:36 99 24 63/16 100 Mechanical Ventilator 100 6/17/18 04:30 101 22 46/20 100 Mechanical Ventilator 100 6/17/18 04:15 87 23 69/48 98 Mechanical Ventilator 100 6/17/18 04:10 85 24 72/52 91 Mechanical Ventilator 100 6/17/18 04:00 100 6/17/18 04:00 87 23 63/33 89 Mechanical Ventilator 100 6/17/18 04:00 93 6/17/18 03:45 91 25 65/53 Mechanical Ventilator 100 6/17/18 03:30 97 24 78/61 Mechanical Ventilator 100 6/17/18 03:15 101 24 69/51 Mechanical Ventilator 100 6/17/18 03:03 61/29 6/17/18 03:00 101 25 61/29 70 Mechanical Ventilator 100 6/17/18 02:58 101 27 100 6/17/18 02:52 96/64 6/17/18 02:45 88 22 96/64 Mechanical Ventilator 100 6/17/18 02:30 104 23 87/59 82 Mechanical Ventilator 100 6/17/18 02:15 106 25 99/82 62 Mechanical Ventilator 100 6/17/18 02:15 106 25 62 Mechanical Ventilator 100 6/17/18 02:00 106 26 93/78 77 Mechanical Ventilator 100 6/17/18 01:45 109 29 93/51 6/17/18 01:45 109 29 93/51 85 Mechanical Ventilator 100 6/17/18 01:30 110 29 77/40 83 Mechanical Ventilator 100 6/17/18 01:30 110 29 77/40 6/17/18 01:15 111 33 65/31 89 Mechanical Ventilator 30 6/17/18 01:15 111 33 89 6/17/18 01:12 111 23 30 6/17/18 01:09 111 30 85/50 6/17/18 01:00 108 28 62/22 98 Mechanical Ventilator 30 617/18 01:00 108 28 62/22 98 6/17/18 00:47 108 31 82/37 6/17/18 00:47 108 31 82/37 Mechanical Ventilator 30 6/17/18 00:45 108 31 6/17/18 00:37 Mechanical Ventilator 6/17/18 00:32 109 34 51/27 77 Mechanical Ventilator 30 6/17/18 00:32 109 34 51/27 77 6/17/18 00:30 108 33 81/47 81 Mechanical Ventilator 30 617/18 00:30 108 33 81/47 81 6/17/18 00:15 104 31 83/44 100 6/17/18 00:15 104 31 83/44 100 Mechanical Ventilator 30 617/18 00:07 106 32 80/25 6/17/18 00:07 106 32 80/25 Mechanical Ventilator 30 6/17/18 00:00 100 6/17/18 00:00 106 28 76/42 6/18 00:00 92.2 106 28 76/42 Mechanical Ventilator 30 92.2 17/18 00:00 105 16/18 23:45 83/44 6/16/18 23:22 112 22 30 6/16/18 22:15 108 28 118/88 100 6/16/18 22:10 109 27 87/47 100 /16/18 22:05 109 28 88/52 100 6/16/18 22:04 110 28 86/65 100 Mechanical Ventilator 30 6/16/18 22:00 114 31 57/31 100 Mechanical Ventilator 30 6/16/18 21:55 113 29 101/67 100 Mechanical Ventilator 30 6/16/18 21:50 114 30 70/39 100 Mechanical Ventilator 30 6/16/18 21:45 111 27 70/31 100 Mechanical Ventilator 30 6/16/18 21:40 111 28 75/49 100 Mechanical Ventilator 30 6/16/18 21:35 113 30 70/36 100 Mechanical Ventilator 30 6/16/18 21:30 112 30 74/43 100 Mechanical Ventilator 30 6/16/18 21:25 112 28 78/45 100 Mechanical Ventilator 30 6/16/18 21:20 111 32 96/72 100 Mechanical Ventilator 30 6/16/18 21:15 111 31 51/18 100 Mechanical Ventilator 30 6/16/18 21:15 115 25 65 6/16/18 21:10 112 30 58/26 100 Mechanical Ventilator 30 6/16/18 21:08 112 29 63/25 100 Mechanical Ventilator 30 6/16/18 21:05 112 27 71/18 100 Mechanical Ventilator 30 6/16/18 21:00 110 31 45/11 100 Mechanical Ventilator 30 6/16/18 20:51 55/17 6/16/18 20:45 110 32 55/17 100 Mechanical Ventilator 30 6/16/18 20:37 111 30 63/32 100 Mechanical Ventilator 30 6/16/18 20:30 112 28 63/23 100 Mechanical Ventilator 30 6/16/18 20:21 112 29 61/37 100 Mechanical Ventilator 30 6/16/18 20:15 113 28 100 Mechanical Ventilator 30 6/16/18 20:06 118 27 73/52 100 Mechanical Ventilator 30 6/16/18 20:04 118 26 65/40 100 Mechanical Ventilator 30 6/16/18 20:02 118 26 55/21 100 Mechanical Ventilator 30 6/16/18 20:01 117 24 Mechanical Ventilator 30 6/16/18 20:00 30 6/16/18 20:00 92.3 118 25 100 Mechanical Ventilator 30 92.3 6/16/18 20:00 116 6/16/18 20:00 30 6/16/18 19:53 115 25 118/81 100 Mechanical Ventilator 30 6/16/18 19:45 114 26 100 Mechanical Ventilator 30 6/16/18 19:30 118 26 65 6/16/18 19:30 115 27 100 Mechanical Ventilator 30 6/16/18 19:30 117 24 Mechanical Ventilator 30 6/16/18 19:15 115 25 96 Mechanical Ventilator 30 6/16/18 19:00 113 22 122/103 97 Mechanical Ventilator 30 6/16/18 18:22 119 28 126/86 99 Mechanical Ventilator 30 6/16/18 18:00 30.0 6/16/18 17:55 94.5 115 26 70/55 100 Mechanical Ventilator 15.0 30 94.5 6/16/18 16:55 94.5 115 24 94.5 6/16/18 16:47 15.0 30 6/16/18 16:40 94.4 108 25 94.4 6/16/18 16:30 94.4 111 26 81/40 100 Mechanical Ventilator 15.0 30 94.4 6/16/18 16:00 112 21 83/42 100 Mechanical Ventilator 15.0 60 12/21/17 15:59 98.4 120 18 75/48 100 Mechanical Ventilator 15.0 60 98.4 12/21/17 15:41 15.0 60 18 15:30 18 75/48 618 15:30 120 18 75/48 100 Mechanical Ventilator 15.0 60 12/21/17 15:15 18 94/53 12/21/17 15:00 115 20 95/44 99 Mechanical Ventilator 15.0 60 12/21/17 15:00 20 95/44 12/21/17 15:00 20 95/44 12/21/17 14:56 114 34 Mechanical Ventilator 100 12/21/17 14:56 117 34 60 12/21/17 14:30 15.0 100 12/21/17 14:30 98.4 129 18 89/61 100 Mechanical Ventilator 15.0 100 98.4 12/21/17 14:05 98.5 110 16 76/47 99 Room Air 98.4 Status: sedated Condition: critical HEENT: atraumatic, normocephalic Lungs: clear Heart: HR/BP unstable Abdomen: soft, non-tender, active bowel sounds Extremities: no C/C/E Blood Sugars: BS not controlled Critical Care - Subjective ROS Limited/Unobtainable: Yes ICU Day: 2 Intubation Day: 2 Interval Events: Progressive decline throught the night with marked acidosis, initially 6.71/25/ 134/3/95 Extensive discussions with team, including renal, HD not possible, can not do CRRT S/P 9 U PRBC, 8 U FFP, 6 U platelets Still with bloody NGT O/P, large volumes Maxed out on NE, DA and Vaso 10/3.4, no UO, all OP if from NGT, bloody NGT O/P + BRBPR x 2 Hb 4.9, plt 134, INR 1.6, K 6.2, Cr upto 2, BS has been elevated, LFT's worse , ammonia 277 Condition: critical IV Access: central EKG Rhythm: Sinus Rhythm FI02: 100 Vent Support Breath Rate: 24 Vent Support Mode: AC Vent Tidal Volume: 600 Sputum Amount: Small PIP: 39 Secretions: Moderate white Fluids: [id number] HCO3-@ 200 Drips: octreotide @ 50, protonix, NE 30, Vaso 0.04, DA 2 I&O: Intake and Output 12/21/17 12/22/17 19:00 07:00 Intake Total 1000 ml 9612.643 ml Output Total 3400 ml Balance 1000 ml 6212.643 ml Intake Oral 0 ml IV Total 1000 ml 4606.643 ml Blood Product 5006 ml Output Urine Total 0 ml Gastric Drainage Total 3400 ml # Voids 1 Subjective: Non obtainable ET-Tube: 7.5 ET Position: 24 Labs: Laboratory Tests Test 12/21/17 14:25 12/21/17 16:18 12/21/17 16:33 12/21/17 19:50 White Blood Count 7.9 K/UL (4.8-10.8) 7.7 K/UL (4.8-10.8) Red Blood Count 2.72 M/UL (4.70-6.10) L 2.00 M/UL (4.70-6.10) L Hemoglobin 8.5 G/DL (14.2-18.0) L 5.9 G/DL (14.2-18.0) Hematocrit 26.0 % (42.0-52.0) L 19.7 % (42.0-52.0) L Mean Corpuscular Volume 95 FL (80-99) 98 FL (80-99) Mean Corpuscular Hemoglobin 31.3 PG (27.0-31.0) H 29.7 PG (27.0-31.0) Mean Corpuscular Hemoglobin Concent 32.9 G/DL (32.0-36.0) 30.2 G/DL (32.0-36.0) L Red Cell Distribution Width 13.6 % (11.6-14.8) 16.5 % (11.6-14.8) H Platelet Count 15 K/UL (150-450) L 13 K/UL (150-450) L Mean Platelet Volume 16.3 FL (6.5-10.1) H 9.8 FL (6.5-10.1) Neutrophils (%) (Auto) % (45.0-75.0) % (45.0-75.0) Lymphocytes (%) (Auto) % (20.0-45.0) % (20.0-45.0) Monocytes (%) (Auto) % (1.0-10.0) % (1.0-10.0) Eosinophils (%) (Auto) % (0.0-3.0) % (0.0-3.0) Basophils (%) (Auto) % (0.0-2.0) % (0.0-2.0) Differential Total Cells Counted 100 100 Neutrophils % (Manual) 61 % (45-75) 84 % (45-75) H Lymphocytes % (Manual) 33 % (20-45) 6 % (20-45) L Monocytes % (Manual) 3 % (1-10) 3 % (1-10) Eosinophils % (Manual) 1 % (0-3) 0 % (0-3) Basophils % (Manual) 2 % (0-2) 0 % (0-2) Band Neutrophils 0 % (0-8) 7 % (0-8) Platelet Estimate Decreased L Decreased L Platelet Morphology Normal Normal Hypochromasia 1+ 2+ Anisocytosis 1+ 1+ Prothrombin Time 16.7 SEC (9.30-11.50) H 23.9 SEC (9.30-11.50) H Prothromb Time International Ratio 1.6 (0.9-1.1) H 2.3 (0.9-1.1) H Activated Partial Thromboplast Time 34 SEC (23-33) H 101 SEC (23-33) H Sodium Level 139 MMOL/L (136-145) 144 MMOL/L (136-145) Potassium Level 2.9 MMOL/L (3.5-5.1) L 3.9 MMOL/L (3.5-5.1) Chloride Level 104 MMOL/L (98-107) 111 MMOL/L (98-107) H Carbon Dioxide Level 19 MMOL/L (21-32) L 8 MMOL/L (21-32) *L Anion Gap 16 mmol/L (5-15) H 25 mmol/L (5-15) H Blood Urea Nitrogen 9 mg/dL (7-18) 9 mg/dL (7-18) Creatinine 1.2 MG/DL (0.55-1.30) 1.6 MG/DL (0.55-1.30) H Estimat Glomerular Filtration Rate > 60 mL/min (>60) 45.1 mL/min (>60) Glucose Level 193 MG/DL (74-106) H 402 MG/DL (74-106) #H Calcium Level 7.1 MG/DL (8.5-10.1) L 5.8 MG/DL (8.5-10.1) *L Total Bilirubin 2.5 MG/DL (0.2-1.0) H Direct Bilirubin 1.5 MG/DL (0.0-0.3) H Aspartate Amino Transf (AST/SGOT) 214 U/L (15-37) H Alanine Aminotransferase (ALT/SGPT) 78 U/L (12-78) Alkaline Phosphatase 111 U/L (46-116) Total Protein 6.0 G/DL (6.4-8.2) L Albumin 2.4 G/DL (3.4-5.0) L Globulin 3.6 g/dL Albumin/Globulin Ratio 0.7 (1.0-2.7) L Triglycerides Level 89 MG/DL (30-150) Lipase 217 U/L (73-393) Urine Color Brown Urine Appearance Slightly cloudy Urine pH 6 (4.5-8.0) Urine Specific Ehrhardt 1.015 (1.005-1.035) Urine Protein 3+ (NEGATIVE) H Urine Glucose (UA) 2+ (NEGATIVE) H Urine Ketones 2+ (NEGATIVE) H Urine Occult Blood 2+ (NEGATIVE) H Urine Nitrite Positive (NEGATIVE) H Urine Bilirubin 3+ (NEGATIVE) H Urine Ictotest Positive Urine Urobilinogen 8 MG/DL (0.0-1.0) H Urine Leukocyte Esterase 1+ (NEGATIVE) H Urine RBC 10-15 /HPF (0 - 0) H Urine WBC 5-10 /HPF (0 - 0) H Urine Squamous Epithelial Cells None /LPF (NONE/OCC) Urine Amorphous Sediment Few /LPF (NONE) H Urine Bacteria Moderate /HPF (NONE) H Arterial Blood pH 7.230 (7.350-7.450) Arterial Blood Partial Pressure CO2 25.7 mmHg (35.0-45.0) L Arterial Blood Partial Pressure O2 330.4 mmHg (75.0-100.0) H Arterial Blood HCO3 10.4 mmol/L (22.0-26.0) L Arterial Blood Oxygen Saturation 98.9 % (92.0-98.0) H Arterial Blood Base Excess -15.6 Rom Test Positive Magnesium Level 1.5 MG/DL (1.8-2.4) L Test 12/21/17 20:32 12/22/17 00:24 12/22/17 02:45 12/22/17 06:55 Arterial Blood pH 6.713 (7.350-7.450) 6.699 (7.350-7.450) Arterial Blood Partial Pressure CO2 25.1 mmHg (35.0-45.0) L 26.6 mmHg (35.0-45.0) L Arterial Blood Partial Pressure O2 134.3 mmHg (75.0-100.0) H 372.8 mmHg (75.0-100.0) H Arterial Blood HCO3 3.1 mmol/L (22.0-26.0) L 3.2 mmol/L (22.0-26.0) L Arterial Blood Oxygen Saturation 95.4 % (92.0-98.0) 98.6 % (92.0-98.0) H Arterial Blood Base Excess -30.1 -29.9 Rom Test Positive Positive White Blood Count 4.2 K/UL (4.8-10.8) L 3.9 K/UL (4.8-10.8) L Red Blood Count 1.26 M/UL (4.70-6.10) L 1.68 M/UL (4.70-6.10) L Hemoglobin 3.6 G/DL (14.2-18.0) 4.9 G/DL (14.2-18.0) Hematocrit 12.5 % (42.0-52.0) #L 16.7 % (42.0-52.0) #L Mean Corpuscular Volume 99 FL (80-99) 99 FL (80-99) Mean Corpuscular Hemoglobin 28.3 PG (27.0-31.0) 29.5 PG (27.0-31.0) Mean Corpuscular Hemoglobin Concent 28.5 G/DL (32.0-36.0) L 29.7 G/DL (32.0-36.0) L Red Cell Distribution Width 15.9 % (11.6-14.8) H 13.9 % (11.6-14.8) Platelet Count 23 K/UL (150-450) #L 134 K/UL (150-450) #L Mean Platelet Volume 6.9 FL (6.5-10.1) 4.4 FL (6.5-10.1) L Neutrophils (%) (Auto) % (45.0-75.0) % (45.0-75.0) Lymphocytes (%) (Auto) % (20.0-45.0) % (20.0-45.0) Monocytes (%) (Auto) % (1.0-10.0) % (1.0-10.0) Eosinophils (%) (Auto) % (0.0-3.0) % (0.0-3.0) Basophils (%) (Auto) % (0.0-2.0) % (0.0-2.0) Neutrophils % (Manual) Pending Pending Lymphocytes % (Manual) Pending Pending Platelet Estimate Pending Pending Platelet Morphology Pending Pending Prothrombin Time 22.7 SEC (9.30-11.50) H 17.1 SEC (9.30-11.50) H Prothromb Time International Ratio 2.2 (0.9-1.1) H 1.6 (0.9-1.1) H Activated Partial Thromboplast Time Pending Sodium Level 147 MMOL/L (136-145) H 147 MMOL/L (136-145) H Potassium Level 6.2 MMOL/L (3.5-5.1) #*H 6.2 MMOL/L (3.5-5.1) *H Chloride Level 114 MMOL/L (98-107) H 111 MMOL/L (98-107) H Carbon Dioxide Level 6 MMOL/L (21-32) *L 7 MMOL/L (21-32) *L Anion Gap 27 mmol/L (5-15) H 29 mmol/L (5-15) H Blood Urea Nitrogen 9 mg/dL (7-18) 9 mg/dL (7-18) Creatinine 2.0 MG/DL (0.55-1.30) H 2.0 MG/DL (0.55-1.30) H Estimat Glomerular Filtration Rate 34.9 mL/min (>60) 34.9 mL/min (>60) Glucose Level 320 MG/DL (74-106) H 393 MG/DL (74-106) H Lactic Acid Level 24.10 mmol/L (0.4-2.0) H Calcium Level 5.5 MG/DL (8.5-10.1) *L 5.8 MG/DL (8.5-10.1) *L Magnesium Level 1.9 MG/DL (1.8-2.4) 2.2 MG/DL (1.8-2.4) Total Bilirubin 1.5 MG/DL (0.2-1.0) H 1.5 MG/DL (0.2-1.0) H Direct Bilirubin 0.7 MG/DL (0.0-0.3) H 0.5 MG/DL (0.0-0.3) H Aspartate Amino Transf (AST/SGOT) 642 U/L (15-37) H 1439 U/L (15-37) H Alanine Aminotransferase (ALT/SGPT) 133 U/L (12-78) H 209 U/L (12-78) H Alkaline Phosphatase 41 U/L (46-116) L 42 U/L (46-116) L Ammonia 277 umol/L (11-32) H Total Protein 2.9 G/DL (6.4-8.2) #L 3.3 G/DL (6.4-8.2) L Albumin 1.2 G/DL (3.4-5.0) L 1.5 G/DL (3.4-5.0) L Globulin 1.7 g/dL 1.8 g/dL Albumin/Globulin Ratio 0.7 (1.0-2.7) L 0.8 (1.0-2.7) L Alpha Fetoprotein Pending Phosphorus Level 8.3 MG/DL (2.5-4.9) H Cj Tapia MD Dec 22, 2017 08:32
--- NOTE | 2017-12-22 09:10 | Pre-Procedure Note/Attestation ---
Pre-Procedure Note/Attestation Complete Prior to Procedure Planned Procedure: not applicable Procedure Narrative: EGD with possible banding and hemostasis Indications for Procedure Pre-Operative Diagnosis: UGIB Attestation I attest that I discussed the nature of the procedure; its benefits; risks and complications; and alternatives (and the risks and benefits of such alternatives ), prior to the procedure, with the patient (or the patient's legal solar manufacturer's representative). I attest that, if there was a reasonable possibility of needing a blood transfusion, the patient (or the patient's legal solar manufacturer's representative) was given the [facility] standardized written summary, pursuant to the Willem [place] Blood Safety Act ([place] Health and Safety Code # 1645, as amended). I attest that I re-evaluated the patient just prior to the surgery and that there has been no change in the patient's H&P, except as documented below: Shameka Frazier MD Dec 22, 2017 09:10
--- NOTE | 2017-12-22 09:10 | General Progress Note ---
Assessment/Plan Assessment/Plan Assessment - EtOH Cirrhosis, per 2015 [facility] w/u - thrombocytopenia - Platelet count in 50's in 2015 per [facility] records - massive and ongoing active UGIB - severe anemia and coagulopathy - hypotension, shock - triple pressor dependent - abnormal LFT, azotemia, acidosis - presumed due to hypoperfusion - condition critical Plans - continue aggressive blood product replacement - aggressive correction of coagulopathy (Target platelet > 50 and INR <2.0) - Serial blood tests, need to "stay ahead" of recurrent coagulopathy - nephrology to address possible HD - Pressors and IV bicarb per pulmonary / critical care - Therapeutic endoscopy this am - abx - PPI - sandostatin - will address NH3 once bleeding resolved Subjective Allergies: Coded Allergies: No Known Allergies (Unverified , 12/21/17) Subjective Above all noted multiple calls to ICU discussed at bedside with pulmonary this am d/w family in ICU this am s/p 10 units PRBC, 8 FFP, 6 platelets on 3 pressors - levo, vaso, dopa becoming progressively acidotic multiple perfusion related abnormalities (LFT, Cr, K, bicarb, mottled feet) d/w and son re therapeutic endoscopy advised this is likely the only window of opportunity to perform procedure Family aware that patient very high risk, and that he may with or without, or during Endoscopy Objective Last 24 Hour Vital Signs Date Time Temp Pulse Resp B/P (MAP) Pulse Ox O2 Delivery O2 Flow Rate FiO2 12/22/17 07:31 80/42 12/22/17 07:28 97 24 100 12/22/17 06:45 98 23 41/15 100 Mechanical Ventilator 100 12/22/17 06:30 100 22 100 Mechanical Ventilator 100 12/22/17 06:15 100 23 69/54 100 Mechanical Ventilator 100 12/22/17 06:00 99 24 127/103 100 Mechanical Ventilator 100 12/22/17 05:45 99 24 100/89 Mechanical Ventilator 100 12/22/17 05:30 101 23 140/107 Mechanical Ventilator 100 12/22/17 05:15 92.1 101 23 93/48 100 Mechanical Ventilator 100 92.1 12/22/17 05:06 100 22 112/79 100 Mechanical Ventilator 100 12/22/17 04:49 54/15 12/22/17 04:45 99 21 54/15 100 Mechanical Ventilator 100 6/17/18 04:43 99 28 100 6/17/18 04:36 99 24 63/16 100 Mechanical Ventilator 100 6/17/18 04:30 101 22 46/20 100 Mechanical Ventilator 100 6/17/18 04:15 87 23 69/48 98 Mechanical Ventilator 100 6/17/18 04:10 85 24 72/52 91 Mechanical Ventilator 100 6/17/18 04:00 100 6/17/18 04:00 87 23 63/33 89 Mechanical Ventilator 100 6/17/18 04:00 93 6/17/18 03:45 91 25 65/53 Mechanical Ventilator 100 6/17/18 03:30 97 24 78/61 Mechanical Ventilator 100 6/17/18 03:15 101 24 69/51 Mechanical Ventilator 100 6/17/18 03:03 61/29 6/17/18 03:00 101 25 61/29 70 Mechanical Ventilator 100 6/17/18 02:58 101 27 100 6/17/18 02:52 96/64 6/17/18 02:45 88 22 96/64 Mechanical Ventilator 100 6/17/18 02:30 104 23 87/59 82 Mechanical Ventilator 100 6/17/18 02:15 106 25 99/82 62 Mechanical Ventilator 100 6/17/18 02:15 106 25 62 Mechanical Ventilator 100 6/17/18 02:00 106 26 93/78 77 Mechanical Ventilator 100 6/17/18 01:45 109 29 93/51 6/17/18 01:45 109 29 93/51 85 Mechanical Ventilator 100 6/17/18 01:30 110 29 77/40 83 Mechanical Ventilator 100 6/17/18 01:30 110 29 77/40 6/17/18 01:15 111 33 65/31 89 Mechanical Ventilator 30 6/17/18 01:15 111 33 89 6/17/18 01:12 111 23 30 6/17/18 01:09 111 30 85/50 6/17/18 01:00 108 28 62/22 98 Mechanical Ventilator 30 6/17/18 01:00 108 28 62/22 98 6/17/18 00:47 108 31 82/37 6/17/18 00:47 108 31 82/37 Mechanical Ventilator 30 6/17/18 00:45 108 31 6/17/18 00:37 Mechanical Ventilator 6/17/18 00:32 109 34 51/27 77 Mechanical Ventilator 30 6/17/18 00:32 109 34 51/27 77 6/17/18 00:30 108 33 81/47 81 Mechanical Ventilator 30 6/17/18 00:30 108 33 81/47 81 6/17/18 00:15 104 31 83/44 100 6/17/18 00:15 104 31 83/44 100 Mechanical Ventilator 30 6/17/18 00:07 106 32 80/25 6/17/18 00:07 106 32 80/25 Mechanical Ventilator 30 6/17/18 00:00 100 6/17/18 00:00 106 28 76/42 6/17/18 00:00 92.2 106 28 76/42 Mechanical Ventilator 30 92.2 6/17/18 00:00 105 6/16/18 23:45 83/44 616/18 23:22 112 22 30 6/16/18 22:15 108 28 118/88 100 6/16/18 22:10 109 27 87/47 100 6/16/18 22:05 109 28 88/52 100 6/16/18 22:04 110 28 86/65 100 Mechanical Ventilator 30 6/16/18 22:00 114 31 57/31 100 Mechanical Ventilator 30 6/16/18 21:55 113 29 101/67 100 Mechanical Ventilator 30 6/16/18 21:50 114 30 70/39 100 Mechanical Ventilator 30 6/16/18 21:45 111 27 70/31 100 Mechanical Ventilator 30 6/16/18 21:40 111 28 75/49 100 Mechanical Ventilator 30 6/16/18 21:35 113 30 70/36 100 Mechanical Ventilator 30 6/16/18 21:30 112 30 74/43 100 Mechanical Ventilator 30 6/16/18 21:25 112 28 78/45 100 Mechanical Ventilator 30 6/16/18 21:20 111 32 96/72 100 Mechanical Ventilator 30 6/16/18 21:15 111 31 51/18 100 Mechanical Ventilator 30 6/16/18 21:15 115 25 65 6/16/18 21:10 112 30 58/26 100 Mechanical Ventilator 30 6/16/18 21:08 112 29 63/25 100 Mechanical Ventilator 30 6/16/18 21:05 112 27 71/18 100 Mechanical Ventilator 30 6/16/18 21:00 110 31 45/11 100 Mechanical Ventilator 30 6/16/18 20:51 55/17 6/16/18 20:45 110 32 55/17 100 Mechanical Ventilator 30 616/18 20:37 111 30 63/32 100 Mechanical Ventilator 30 616/18 20:30 112 28 63/23 100 Mechanical Ventilator 30 616/18 20:21 112 29 61/37 100 Mechanical Ventilator 30 616/18 20:15 113 28 100 Mechanical Ventilator 30 616/18 20:06 118 27 73/52 100 Mechanical Ventilator 30 61618 20:04 118 26 65/40 100 Mechanical Ventilator 30 1618 20:02 118 26 55/21 100 Mechanical Ventilator 30 1618 20:01 117 24 Mechanical Ventilator 30 1618 20:00 30 18 20:00 92.3 118 25 100 Mechanical Ventilator 30 92.3 18 20:00 116 61618 20:00 30 18 19:53 115 25 118/81 100 Mechanical Ventilator 30 18 19:45 114 26 100 Mechanical Ventilator 30 18 19:30 118 26 65 [id number] 19:30 115 27 100 Mechanical Ventilator 30 18 19:30 117 24 Mechanical Ventilator 30 1618 19:15 115 25 96 Mechanical Ventilator 30 1618 19:00 113 22 122/103 97 Mechanical Ventilator 30 18 18:22 119 28 126/86 99 Mechanical Ventilator 30 16/18 18:00 30.0 16/18 17:55 94.5 115 26 70/55 100 Mechanical Ventilator 15.0 30 94.5 616/18 16:55 94.5 115 24 94.5 616/18 16:47 15.0 30 616/18 16:40 94.4 108 25 94.4 616/18 16:30 94.4 111 26 81/40 100 Mechanical Ventilator 15.0 30 94.4 616/18 16:00 112 21 83/42 100 Mechanical Ventilator 15.0 60 6/16/18 15:59 98.4 120 18 75/48 100 Mechanical Ventilator 15.0 60 98.4 616/18 15:41 15.0 60 616/18 15:30 18 75/48 6/16/18 15:30 120 18 75/48 100 Mechanical Ventilator 15.0 60 6/16/18 15:15 18 94/53 12/21/17 15:00 115 20 95/44 99 Mechanical Ventilator 15.0 60 12/21/17 15:00 20 /44 12/21/17 15:00 20 /44 12/21/17 14:56 114 34 Mechanical Ventilator 100 12/21/17 14:56 117 34 60 12/21/17 14:30 15.0 100 12/21/17 14:30 98.4 129 18 89/61 100 Mechanical Ventilator 15.0 100 98.4 12/21/17 14:05 98.5 110 16 76/47 99 Room Air 98.4 Intake and Output 12/21/17 12/22/17 19:00 07:00 Intake Total 1000 ml 9612.643 ml Output Total 3400 ml Balance 1000 ml 6212.643 ml Intake Oral 0 ml IV Total 1000 ml 4606.643 ml Blood Product 5006 ml Output Urine Total 0 ml Gastric Drainage Total 3400 ml # Voids 1 Laboratory Tests 12/21/17 14:25: White Blood Count 7.9, Red Blood Count 2.72L, Hemoglobin 8.5L, Hematocrit 26.0L , Mean Corpuscular Volume 95, Mean Corpuscular Hemoglobin 31.3H, Mean Corpuscular Hemoglobin Concent 32.9, Red Cell Distribution Width 13.6, Platelet Count 15L, Mean Platelet Volume 16.3H, Neutrophils (%) (Auto) , Lymphocytes (%) (Auto) , Monocytes (%) (Auto) , Eosinophils (%) (Auto) , Basophils (%) (Auto) , Differential Total Cells Counted 100, Neutrophils % (Manual) 61, Lymphocytes % ( Manual) 33, Monocytes % (Manual) 3, Eosinophils % (Manual) 1, Basophils % ( Manual) 2, Band Neutrophils 0, Platelet Estimate DecreasedL, Platelet Morphology Normal, Hypochromasia 1+, Anisocytosis 1+, Prothrombin Time 16.7H, Prothromb Time International Ratio 1.6H, Activated Partial Thromboplast Time 34H , Sodium Level 139, Potassium Level 2.9L, Chloride Level 104, Carbon Dioxide Level 19L, Anion Gap 16H, Blood Urea Nitrogen 9, Creatinine 1.2, Estimat Glomerular Filtration Rate > 60, Glucose Level 193H, Calcium Level 7.1L, Total Bilirubin 2.5H, Direct Bilirubin 1.5H, Aspartate Amino Transf (AST/SGOT) 214H, Alanine Aminotransferase (ALT/SGPT) 78, Alkaline Phosphatase 111, Total Protein 6.0L, Albumin 2.4L, Globulin 3.6, Albumin/Globulin Ratio 0.7L, Triglycerides Level 89, Lipase 217 12/21/17 16:18: Urine Color Brown, Urine Appearance Slightly cloudy, Urine pH 6, Urine Specific [place] 1.015, Urine Protein 3+H, Urine Glucose (UA) 2+H, Urine Ketones 2+H, Urine Occult Blood 2+H, Urine Nitrite PositiveH, Urine Bilirubin 3+H, Urine Ictotest Positive, Urine Urobilinogen 8H, Urine Leukocyte Esterase 1+H, Urine RBC 10-15H, Urine WBC 5-10H, Urine Squamous Epithelial Cells None, Urine Amorphous Sediment FewH, Urine Bacteria ModerateH 12/21/17 16:33: Arterial Blood pH 7.230*L, Arterial Blood Partial Pressure CO2 25.7L, Arterial Blood Partial Pressure O2 330.4H, Arterial Blood HCO3 10.4L, Arterial Blood Oxygen Saturation 98.9H, Arterial Blood Base Excess -15.6, Rom Test Positive 12/21/17 19:50: White Blood Count 7.7, Red Blood Count 2.00L, Hemoglobin 5.9#*L, Hematocrit 19.7L, Mean Corpuscular Volume 98, Mean Corpuscular Hemoglobin 29.7, Mean Corpuscular Hemoglobin Concent 30.2L, Red Cell Distribution Width 16.5H, Platelet Count 13L, Mean Platelet Volume 9.8, Neutrophils (%) (Auto) , Lymphocytes (%) (Auto) , Monocytes (%) (Auto) , Eosinophils (%) (Auto) , Basophils (%) (Auto) , Differential Total Cells Counted 100, Neutrophils % ( Manual) 84H, Lymphocytes % (Manual) 6L, Monocytes % (Manual) 3, Eosinophils % ( Manual) 0, Basophils % (Manual) 0, Band Neutrophils 7, Platelet Estimate DecreasedL, Platelet Morphology Normal, Hypochromasia 2+, Anisocytosis 1+, Prothrombin Time 23.9H, Prothromb Time International Ratio 2.3H, Activated Partial Thromboplast Time 101H, Sodium Level 144, Potassium Level 3.9, Chloride Level 111H, Carbon Dioxide Level 8*L, Anion Gap 25H, Blood Urea Nitrogen 9, Creatinine 1.6H, Estimat Glomerular Filtration Rate 45.1, Glucose Level 402#H, Calcium Level 5.8*L, Magnesium Level 1.5L 12/21/17 20:32: Arterial Blood pH 6.713*L, Arterial Blood Partial Pressure CO2 25.1L, Arterial Blood Partial Pressure O2 134.3H, Arterial Blood HCO3 3.1L, Arterial Blood Oxygen Saturation 95.4, Arterial Blood Base Excess -30.1, Rom Test Positive 12/22/17 00:24: Arterial Blood pH 6.699*L, Arterial Blood Partial Pressure CO2 26.6L, Arterial Blood Partial Pressure O2 372.8H, Arterial Blood HCO3 3.2L, Arterial Blood Oxygen Saturation 98.6H, Arterial Blood Base Excess -29.9, Rom Test Positive 12/22/17 02:45: White Blood Count 4.2L, Red Blood Count 1.26L, Hemoglobin 3.6#*L, Hematocrit 12.5#L, Mean Corpuscular Volume 99, Mean Corpuscular Hemoglobin 28.3, Mean Corpuscular Hemoglobin Concent 28.5L, Red Cell Distribution Width 15.9H, Platelet Count 23#L, Mean Platelet Volume 6.9, Neutrophils (%) (Auto) , Lymphocytes (%) (Auto) , Monocytes (%) (Auto) , Eosinophils (%) (Auto) , Basophils (%) (Auto) , Neutrophils % (Manual) [Pending], Lymphocytes % (Manual) [Pending], Platelet Estimate [Pending], Platelet Morphology [Pending], Prothrombin Time 22.7H, Prothromb Time International Ratio 2.2H, Activated Partial Thromboplast Time [Pending], Sodium Level 147H, Potassium Level 6.2#*H, Chloride Level 114H, Carbon Dioxide Level 6*L, Anion Gap 27H, Blood Urea Nitrogen 9, Creatinine 2.0H, Estimat Glomerular Filtration Rate 34.9, Glucose Level 320H, Lactic Acid Level 24.10H, Calcium Level 5.5*L, Magnesium Level 1.9, Total Bilirubin 1.5H, Direct Bilirubin 0.7H, Aspartate Amino Transf (AST/SGOT) 642H, Alanine Aminotransferase (ALT/SGPT) 133H, Alkaline Phosphatase 41L, Ammonia 277H, Total Protein 2.9#L, Albumin 1.2L, Globulin 1.7, Albumin/Globulin Ratio 0.7L, Alpha Fetoprotein [Pending] 12/22/17 06:55: White Blood Count 3.9L, Red Blood Count 1.68L, Hemoglobin 4.9#*L, Hematocrit 16.7#L, Mean Corpuscular Volume 99, Mean Corpuscular Hemoglobin 29.5, Mean Corpuscular Hemoglobin Concent 29.7L, Red Cell Distribution Width 13.9, Platelet Count 134#L, Mean Platelet Volume 4.4L, Neutrophils (%) (Auto) , Lymphocytes (%) (Auto) , Monocytes (%) (Auto) , Eosinophils (%) (Auto) , Basophils (%) (Auto) , Neutrophils % (Manual) [Pending], Lymphocytes % (Manual) [Pending], Platelet Estimate [Pending], Platelet Morphology [Pending], Prothrombin Time 17.1H, Prothromb Time International Ratio 1.6H, Sodium Level 147H, Potassium Level 6.2*H, Chloride Level 111H, Carbon Dioxide Level 7*L, Anion Gap 29H, Blood Urea Nitrogen 9, Creatinine 2.0H, Estimat Glomerular Filtration Rate 34.9, Glucose Level 393H, Calcium Level 5.8*L, Magnesium Level 2.2, Total Bilirubin 1.5H, Direct Bilirubin 0.5H, Aspartate Amino Transf (AST/ SGOT) 1439H, Alanine Aminotransferase (ALT/SGPT) 209H, Alkaline Phosphatase 42L , Total Protein 3.3L, Albumin 1.5L, Globulin 1.8, Albumin/Globulin Ratio 0.8L, Phosphorus Level 8.3H Height (Feet): 5 Height (Inches): 9.00 Weight (Pounds): 182 Objective Intubated moves to voice, but does not follow Intubated (+) OGT --> BRB coarse ronchi tachy abd distended, decreased bowel sounds some mottling in feet neuro Obtunded Shameka Frazier MD Dec 22, 2017 09:10
[2017-12-22] MEDS ORDERED: NS 275ml ONE ×3 (09:11→21:47)
[2017-12-22] MEDS ORDERED: Tubing Blood Filter IV ONE ×3 (09:11→21:47)
[2017-12-22] MEDS ORDERED: Tubing IV Secondary IV ONE (09:11)
[2017-12-22] MEDS ORDERED: D5NS 1000ml IV ONE (09:11)
[2017-12-22] MEDS ORDERED: D5 1/2NS 1000ml IV ONE (09:11)
[2017-12-22] MEDS ORDERED: Sodium Bicarbonate 50ml Carp ONE (09:56)
[2017-12-22] MEDS ORDERED: Phenylephrine 10mg/ml Vial ONE (11:19)
[2017-12-22] MEDS ORDERED: ePHEDrine 50mg/ml Inj ONE (11:19)
[2017-12-22 11:25] LABS: HEMATOCRIT 23.1 % (42.0-52.0); MEAN CORPUSCULAR VOLUME 98 FL (80-99); PLATELET COUNT 41 K/UL (150-450); RED BLOOD COUNT 2.36 M/UL (4.70-6.10); RED CELL DISTRIBUTION WIDTH 12.9 % (11.6-14.8); WHITE BLOOD COUNT 3.5 K/UL (4.8-10.8)
--- NOTE | 2017-12-22 11:31 | Immediate Post-Op Evaluation ---
Immediate Post-Op Evalulation Immediate Post-Op Evalulation Procedure: EGD with banding Date of Evaluation: Dec 22, 2017 Time of Evaluation: 10:30 IV Fluids: 800 Blood Products: 3units Estimated Blood Loss: 1000 Blood Pressure Systolic: 60 Blood Pressure Diastolic: 40 Pulse Rate: 100 Respiratory Rate: 24 O2 Sat by Pulse Oximetry: 100 Nausea: No Vomiting: No Complications none Patient Status: reacts, ventilated Hydration Status: other - pt is in hypovolemic shock; gave 3 units of PRBC/ 2 amps bicarb/ 2mg epi to sustain BP in 60s/ Drug: none Arcelia Palm CRNA Dec 22, 2017 11:31
--- NOTE | 2017-12-22 11:36 | Anethesia Preoperative Eval ---
Anesthesia Pre-op PMH/ROS General Date of Evaluation: Dec 22, 2017 Time of Evaluation: 09:00 Anesthesiologist: pancho ASA Score: ASA 4 Mallampati Score Class I : Soft palate, uvula, fauces, pillars visible Class II: Soft palate, uvula, fauces visible Class III: Soft palate, base of uvula visible Class IV: Only hard plate visible Mallampati Classification: Class III Surgeon: Freddie Diagnosis: Upper GI bleed Surgical Procedure: EGD with banding Anesthesia History: none Social History: smoking, alcohol use Family History: no anesthesia problems Allergies: Coded Allergies: No Known Allergies (Unverified , 12/21/17) Medications: see eMAR Past Medical History Cardiovascular: Reports: HTN; Denies: CAD, NC, valve dz, arrhythmia, other Pulmonary: Reports: other - [facility] ventilation; Denies: asthma, COPD, JEANCARLOS Gastrointestinal/Genitourinary: Reports: GERD, CRI, other - cirrohosis Neurologic/Psychiatric: Denies: dementia, CVA, depression/anxiety, TIA, other Endocrine: Denies: DM, hypothyroidism, steroids, other HEENT: Denies: cataract (L), cataract (R), glaucoma, [place] (L), [place] (R), other Hematology/Immune: Reports: anemia, bleeding disorder, other; Denies: DVT Musculoskeletal/Integumentary: Denies: OA, RA, DJD, DDD, edema, other Other: obesity PMH Narrative: - EtOH Cirrhosis, per 2015 [facility] w/u - thrombocytopenia - Platelet count in 50's in 2014 per [facility] records - massive and ongoing active UGIB - severe anemia and coagulopathy - hypotension, shock - triple pressor dependent - abnormal LFT, azotemia, acidosis - presumed due to hypoperfusion - condition critical PSxH Narrative: bilateral inguinal hernia Anesthesia Pre-op Phys. Exam Physician Exam Last Vital Signs Date Time Temp Pulse Resp B/P (MAP) Pulse Ox O2 Delivery O2 Flow Rate FiO2 12/22/17 11:22 74 24 100 12/22/17 11:14 59/25 12/22/17 08:45 100 Mechanical Ventilator 12/22/17 05:15 92.1 92.1 12/21/17 18:00 30.0 Constitutional: other - critical; Neurologic: other - intubated; responsive to pain Cardiovascular: other - acidotic; max on 3 pressors (Vasopressin, dop and levophed) BP 70s/40 hr 100; Respiratory: other - mech ventilated; see chart; 100% Gastrointestinal: other - actively bleeding; Airway Exam Mallampati Classification 3na Mallampati Score: Class III MO: limited ROM: limited Dentures: no upper, no lower Anesthesia Pre-op A/P Labs Hematology Test 12/21/17 14:25 12/21/17 19:50 12/22/17 02:45 12/22/17 06:55 White Blood Count 7.9 K/UL (4.8-10.8) 7.7 K/UL (4.8-10.8) 4.2 K/UL (4.8-10.8) L 3.9 K/UL (4.8-10.8) L Red Blood Count 2.72 M/UL (4.70-6.10) L 2.00 M/UL (4.70-6.10) L 1.26 M/UL (4.70-6.10) L 1.68 M/UL (4.70-6.10) L Hemoglobin 8.5 G/DL (14.2-18.0) L 5.9 G/DL (14.2-18.0) 3.6 G/DL (14.2-18.0) 4.9 G/DL (14.2-18.0) Hematocrit 26.0 % (42.0-52.0) L 19.7 % (42.0-52.0) L 12.5 % (42.0-52.0) #L 16.7 % (42.0-52.0) #L Mean Corpuscular Volume 95 FL (80-99) 98 FL (80-99) 99 FL (80-99) 99 FL ( 80-99) Mean Corpuscular Hemoglobin 31.3 PG (27.0-31.0) H 29.7 PG (27.0-31.0) 28.3 PG (27.0-31.0) 29.5 PG (27.0-31.0) Mean Corpuscular Hemoglobin Concent 32.9 G/DL (32.0-36.0) 30.2 G/DL (32.0-36.0) L 28.5 G/DL (32.0-36.0) L 29.7 G/DL (32.0-36.0) L Red Cell Distribution Width 13.6 % (11.6-14.8) 16.5 % (11.6-14.8) H 15.9 % (11.6-14.8) H 13.9 % (11.6-14.8) Platelet Count 15 K/UL (150-450) L 13 K/UL (150-450) L 23 K/UL (150-450) #L 134 K/UL (150-450) #L Mean Platelet Volume 16.3 FL (6.5-10.1) H 9.8 FL (6.5-10.1) 6.9 FL (6.5-10.1) 4.4 FL (6.5-10.1) L Neutrophils (%) (Auto) % (45.0-75.0) % (45.0-75.0) % (45.0-75.0) % (45.0-75.0) Lymphocytes (%) (Auto) % (20.0-45.0) % (20.0-45.0) % (20.0-45.0) % (20.0-45.0) Monocytes (%) (Auto) % (1.0-10.0) % (1.0-10.0) % (1.0-10.0) % (1.0- 10.0) Eosinophils (%) (Auto) % (0.0-3.0) % (0.0-3.0) % (0.0-3.0) % (0.0-3.0 ) Basophils (%) (Auto) % (0.0-2.0) % (0.0-2.0) % (0.0-2.0) % (0.0-2.0) Differential Total Cells Counted 100 100 Neutrophils % (Manual) 61 % (45-75) 84 % (45-75) H Pending Pending Lymphocytes % (Manual) 33 % (20-45) 6 % (20-45) L Pending Pending Monocytes % (Manual) 3 % (1-10) 3 % (1-10) Eosinophils % (Manual) 1 % (0-3) 0 % (0-3) Basophils % (Manual) 2 % (0-2) 0 % (0-2) Band Neutrophils 0 % (0-8) 7 % (0-8) Platelet Estimate Decreased L Decreased L Pending Pending Platelet Morphology Normal Normal Pending Pending Hypochromasia 1+ 2+ Anisocytosis 1+ 1+ Test 12/22/17 11:00 White Blood Count Pending Red Blood Count Pending Hemoglobin Pending Hematocrit Pending Mean Corpuscular Volume Pending Mean Corpuscular Hemoglobin Pending Mean Corpuscular Hemoglobin Concent Pending Red Cell Distribution Width Pending Platelet Count Pending Mean Platelet Volume Pending Neutrophils (%) (Auto) Pending Lymphocytes (%) (Auto) Pending Monocytes (%) (Auto) Pending Eosinophils (%) (Auto) Pending Basophils (%) (Auto) Pending Coagulation Test 12/21/17 14:25 12/21/17 19:50 12/22/17 02:45 12/22/17 06:55 Prothrombin Time 16.7 SEC (9.30-11.50) H 23.9 SEC (9.30-11.50) H 22.7 SEC (9.30-11.50) H 17.1 SEC (9.30-11.50) H Prothromb Time International Ratio 1.6 (0.9-1.1) H 2.3 (0.9-1.1) H 2.2 (0.9-1.1) H 1.6 (0.9-1.1) H Activated Partial Thromboplast Time 34 SEC (23-33) H 101 SEC (23-33) H Pending Test 12/22/17 11:00 Prothrombin Time 21.1 SEC (9.30-11.50) H Prothromb Time International Ratio 2.0 (0.9-1.1) H Chemistry Test 12/21/17 14:25 12/21/17 19:50 12/22/17 02:45 12/22/17 06:55 Sodium Level 139 MMOL/L (136-145) 144 MMOL/L (136-145) 147 MMOL/L (136-145) H 147 MMOL/L (136-145) H Potassium Level 2.9 MMOL/L (3.5-5.1) L 3.9 MMOL/L (3.5-5.1) 6.2 MMOL/L (3.5-5.1) #*H 6.2 MMOL/L (3.5-5.1) *H Chloride Level 104 MMOL/L (98-107) 111 MMOL/L (98-107) H 114 MMOL/L (98-107) H 111 MMOL/L (98-107) H Carbon Dioxide Level 19 MMOL/L (21-32) L 8 MMOL/L (21-32) *L 6 MMOL/L (21-32) *L 7 MMOL/L (21-32) *L Anion Gap 16 mmol/L (5-15) H 25 mmol/L (5-15) H 27 mmol/L (5-15) H 29 mmol/L (5-15) H Blood Urea Nitrogen 9 mg/dL (7-18) 9 mg/dL (7-18) 9 mg/dL (7-18) 9 mg/dL (7-18) Creatinine 1.2 MG/DL (0.55-1.30) 1.6 MG/DL (0.55-1.30) H 2.0 MG/DL (0.55-1.30) H 2.0 MG/DL (0.55-1.30) H Estimat Glomerular Filtration Rate > 60 mL/min (>60) 45.1 mL/min (>60) 34.9 mL/min (>60) 34.9 mL/min (>60) Glucose Level 193 MG/DL (74-106) H 402 MG/DL (74-106) #H 320 MG/DL (74-106) H 393 MG/DL (74-106) H Calcium Level 7.1 MG/DL (8.5-10.1) L 5.8 MG/DL (8.5-10.1) *L 5.5 MG/DL (8.5-10.1) *L 5.8 MG/DL (8.5-10.1) *L Total Bilirubin 2.5 MG/DL (0.2-1.0) H 1.5 MG/DL (0.2-1.0) H 1.5 MG/DL (0.2-1.0) H Direct Bilirubin 1.5 MG/DL (0.0-0.3) H 0.7 MG/DL (0.0-0.3) H 0.5 MG/DL (0.0-0.3) H Aspartate Amino Transf (AST/SGOT) 214 U/L (15-37) H 642 U/L (15-37) H 1439 U/L (15-37) H Alanine Aminotransferase (ALT/SGPT) 78 U/L (12-78) 133 U/L (12-78) H 209 U/L (12-78) H Alkaline Phosphatase 111 U/L (46-116) 41 U/L (46-116) L 42 U/L (46-116) L Total Protein 6.0 G/DL (6.4-8.2) L 2.9 G/DL (6.4-8.2) #L 3.3 G/DL (6.4-8.2) L Albumin 2.4 G/DL (3.4-5.0) L 1.2 G/DL (3.4-5.0) L 1.5 G/DL (3.4-5.0) L Globulin 3.6 g/dL 1.7 g/dL 1.8 g/dL Albumin/Globulin Ratio 0.7 (1.0-2.7) L 0.7 (1.0-2.7) L 0.8 (1.0-2.7) L Triglycerides Level 89 MG/DL (30-150) Lipase 217 U/L (73-393) Magnesium Level 1.5 MG/DL (1.8-2.4) L 1.9 MG/DL (1.8-2.4) 2.2 MG/DL (1.8-2.4) Lactic Acid Level 24.10 mmol/L (0.4-2.0) H Ammonia 277 umol/L (11-32) H Alpha Fetoprotein Pending Phosphorus Level 8.3 MG/DL (2.5-4.9) H Test 12/22/17 11:00 Sodium Level Pending Potassium Level Pending Chloride Level Pending Carbon Dioxide Level Pending Blood Urea Nitrogen Pending Creatinine Pending Estimat Glomerular Filtration Rate Pending Glucose Level Pending Calcium Level Pending Magnesium Level Pending Studies Pre-op Studies: EKG - st Risk Assessment & Plan Assessment: called to assist in EGD banding; supported hemodynamically; no sedation Plan: mac Status Change Before Surgery: No Pre-Antibiotics Drug: none Arcelia Palm CRNA Dec 22, 2017 11:36
[2017-12-22 11:41] LABS: ANION GAP 30 mmol/L (5-15); BLOOD UREA NITROGEN 10 mg/dL (7-18); CHLORIDE 111 MMOL/L (98-107); CREATININE 2.2 MG/DL (0.55-1.30); POTASSIUM 5.4 MMOL/L (3.5-5.1); SODIUM 150 MMOL/L (136-145)
[2017-12-22 11:42] LABS: CARBON DIOXIDE 9 MMOL/L (21-32)
[2017-12-22 11:43] LABS: CALCIUM 5.4 MG/DL (8.5-10.1)
--- NOTE | 2017-12-22 12:01 | 48 Hour Post Anesthesia Eval ---
Post Anesthesia Evaluation Procedure: EGD with banding Date of Evaluation: Dec 22, 2017 Time of Evaluation: 12:00 Blood Pressure Systolic: 84 0: 66 Pulse Rate: 100 Respiratory Rate: 24 O2 Sat by Pulse Oximetry: 100 Airway: other - mech vent Nausea: No Vomiting: No Hydration Status: other Cardiopulmonary Status: stable at this time Mental Status/LOC: patient returned to baseline Follow-up Care/Observations: na Post-Anesthesia Complications: none Follow-up care needed: N/A Arcelia Palm CRNA Dec 22, 2017 12:00
[2017-12-22] MEDS: Norepinephrine Bitartrate 8 MG in D5W 500ml 550 ML IV SCH ×2 (12:17→16:38)
--- NOTE | 2017-12-22 12:53 | Endoscopy Procedure Note ---
Endoscopy Procedure Note General Indication for Procedure: UGIB Procedures Performed: EGD Operative Findings/Diagnosis: bleeding from high cardia, clipped, esophageal varix banded x 2 Specimen: none Pt Tolerated Procedure Well: No Estimated Blood Loss: volume - 300 cc from the bleed itself Anesthesia Anesthesiologist: see anesthesia record Anesthesia: MAC Medications Medication Given: see anesthesia record Inserted Devices Implant(s) used?: No GI Core Measures 50 yrs or older w/o bx or poly: Not Applicable 10yrs. F/U not recommended: Not Applicable If not recommended, why?: Shameka Frazier MD Dec 22, 2017 12:53
--- NOTE | 2017-12-22 12:54 | Brief Operative Note ---
Immediate Post Operative Note Operative Note Chief Complaint: UGIB Pre-op Diagnosis: UGIB Procedure: EGD, banding, endoclip Surgeon: isael Anesthesiologist: see report Anesthesia: moderate sedation Specimen: none Complications: none Condition: unstable Fluids: recorded Estimated Blood Loss: volume - 300 cc from the GI bleed itself Drains: none Implant(s) used?: No Shameka Frazier MD Dec 22, 2017 12:54
--- NOTE | 2017-12-22 13:02 | Consultation ---
History of Present Illness General Date patient seen: Dec 22, 2017 Chief Complaint: Vomiting Present Illness HPI 57 year old male with history of alcoholic abuse with cirrhosis who comes into the ED with 1 day history of acute upper gastrointestinal bleeding. As per family, he was diagnosed with liver cirrhosis 1 year ago at outside facility but he still continues to drink heavily. On admission he was found to have significant amount of blood evacuated by NG tube. He was hypotensive and in shock. He was intubated and taken to the ICU for care and management. He was given multiple units of PRBC, FFP, Plt. Noted to have profound coagulopathy from liver disease and acutely worsening in short period of time. Since he has been actively resuscitated but continues to decline. Seen by GI and scope performed this AM which identified large bleeding gastric and esophageal varices. Clips and bands placed during procedure. Surgery called to evaluate for upper GI bleed. Patient seen, chart reviewed, discussed care with family, and examined patient. no prior history of significant upper GI bleed. Allergies: Coded Allergies: No Known Allergies (Unverified , 12/21/17) Medication History Scheduled No Known Medications* (NKM - No Known Medications*), 0 ., (Reported) Patient History Limited by: medical condition History Provided By: Family Member, Medical Record, PMD Healthcare decision maker SHASHI PABLO () Resuscitation status Full Code Advanced Directive on File No Past Medical/Surgical History Past Medical/Surgical History: (1) Vomiting (2) Anemia (3) Endotracheally intubated (4) UTI (urinary tract infection) (5) Hematemesis (6) Alcoholism (7) Alcoholic cirrhosis (8) Thrombocytopenia (9) Shock (10) Hyperkalemia (11) Transaminitis Review of Systems ROS Narrative cannot obtain given current medical condition Physical Exam General Appearance: severe distress, obese Lines, tubes and drains: central line HEENT: other - blood in oropharynx Neck: normal inspection Respiratory/Chest: on vent Cardiovascular/Chest: tachycardia Abdomen: decreased bowel sounds, distended Genitourinary/Rectal: abid Extremities: trace edema Skin Exam: other - cold Neurologic: unresponsiveness Last 24 Hour Vital Signs Date Time Temp Pulse Resp B/P (MAP) Pulse Ox O2 Delivery O2 Flow Rate FiO2 12/22/17 12:30 86 24 52/42 95 Mechanical Ventilator 100 12/22/17 12:18 61/25 6/17/18 12:17 61/26 6/17/18 12:15 88 25 50/42 95 Mechanical Ventilator 100 6/17/18 12:00 88 27 47/13 95 Mechanical Ventilator 100 6/17/18 12:00 100 6/17/18 12:00 87 6/17/18 12:00 100 24 100 6/17/18 11:45 93.6 87 24 61/51 96 Mechanical Ventilator 100 93.6 6/17/18 11:31 100 24 100 6/17/18 11:30 85 28 84/64 96 Mechanical Ventilator 100 6/17/18 11:22 74 24 100 6/17/18 11:15 85 24 65/29 96 Mechanical Ventilator 100 6/17/18 11:14 59/25 6/17/18 11:00 80 24 72/54 100 Mechanical Ventilator 100 6/17/18 10:45 76 24 97/63 100 Mechanical Ventilator 100 6/17/18 10:30 100 23 51/21 100 Mechanical Ventilator 100 6/17/18 10:15 97 24 63/21 100 Mechanical Ventilator 100 6/17/18 10:00 97 24 60/28 100 Mechanical Ventilator 100 6/17/18 09:45 88 24 69/22 100 Mechanical Ventilator 100 6/17/18 09:30 82 24 67/28 100 Mechanical Ventilator 100 6/17/18 09:15 78 24 63/20 100 Mechanical Ventilator 100 6/17/18 09:08 92 24 100 6/17/18 09:00 96.0 91 23 47/20 100 Mechanical Ventilator 100 96.0 6/17/18 08:45 92 24 80/51 100 Mechanical Ventilator 100 6/17/18 08:30 77 24 79/51 100 Mechanical Ventilator 100 6/17/18 08:15 80 24 54/33 100 Mechanical Ventilator 100 6/17/18 08:00 100 6/17/18 08:00 92 6/17/18 08:00 77 24 53/33 100 Mechanical Ventilator 100 6/17/18 07:45 77 24 53/30 100 Mechanical Ventilator 100 6/17/18 07:31 80/42 6/17/18 07:30 96 24 89/61 100 Mechanical Ventilator 100 6/17/18 07:28 97 24 100 6/17/18 07:15 98 23 106/52 100 Mechanical Ventilator 100 6/17/18 07:00 100 24 52/33 100 Mechanical Ventilator 100 6/17/18 06:45 98 23 41/15 100 Mechanical Ventilator 100 6/17/18 06:30 100 22 100 Mechanical Ventilator 100 6/17/18 06:15 100 23 69/54 100 Mechanical Ventilator 100 6/17/18 06:00 99 24 127/103 100 Mechanical Ventilator 100 6/17/18 05:45 99 24 100/89 Mechanical Ventilator 100 6/17/18 05:30 101 23 140/107 Mechanical Ventilator 100 6/17/18 05:15 92.1 101 23 93/48 100 Mechanical Ventilator 100 92.1 6/17/18 05:06 100 22 112/79 100 Mechanical Ventilator 100 6/17/18 04:49 54/15 6/17/18 04:45 99 21 54/15 100 Mechanical Ventilator 100 6/17/18 04:43 99 28 100 6/17/18 04:36 99 24 63/16 100 Mechanical Ventilator 100 6/17/18 04:30 101 22 46/20 100 Mechanical Ventilator 100 6/17/18 04:15 87 23 69/48 98 Mechanical Ventilator 100 6/17/18 04:10 85 24 72/52 91 Mechanical Ventilator 100 6/17/18 04:00 100 6/17/18 04:00 87 23 63/33 89 Mechanical Ventilator 100 6/17/18 04:00 93 6/17/18 03:45 91 25 65/53 Mechanical Ventilator 100 6/17/18 03:30 97 24 78/61 Mechanical Ventilator 100 6/17/18 03:15 101 24 69/51 Mechanical Ventilator 100 6/17/18 03:03 61/29 6/17/18 03:00 101 25 61/29 70 Mechanical Ventilator 100 6/17/18 02:58 101 27 100 6/17/18 02:52 96/64 6/17/18 02:45 88 22 96/64 Mechanical Ventilator 100 6/17/18 02:30 104 23 87/59 82 Mechanical Ventilator 100 6/17/18 02:15 106 25 99/82 62 Mechanical Ventilator 100 6/17/18 02:15 106 25 62 Mechanical Ventilator 100 6/17/18 02:00 106 26 93/78 77 Mechanical Ventilator 100 6/17/18 01:45 109 29 93/51 6/17/18 01:45 109 29 93/51 85 Mechanical Ventilator 100 6/17/18 01:30 110 29 77/40 83 Mechanical Ventilator 100 6/17/18 01:30 110 29 77/40 6/17/18 01:15 111 33 65/31 89 Mechanical Ventilator 30 6/17/18 01:15 111 33 89 6/17/18 01:12 111 23 30 6/17/18 01:09 111 30 85/50 6/17/18 01:00 108 28 62/22 98 Mechanical Ventilator 30 6/17/18 01:00 108 28 62/22 98 6/17/18 00:47 108 31 82/37 6/17/18 00:47 108 31 82/37 Mechanical Ventilator 30 6/17/18 00:45 108 31 6/17/18 00:37 Mechanical Ventilator 6/17/18 00:32 109 34 51/27 77 Mechanical Ventilator 30 6/17/18 00:32 109 34 51/27 77 6/17/18 00:30 108 33 81/47 81 Mechanical Ventilator 30 6/17/18 00:30 108 33 81/47 81 6/17/18 00:15 104 31 83/44 100 6/17/18 00:15 104 31 83/44 100 Mechanical Ventilator 30 6/17/18 00:07 106 32 80/25 6/17/18 00:07 106 32 80/25 Mechanical Ventilator 30 6/17/18 00:00 100 6/17/18 00:00 106 28 76/42 6/17/18 00:00 92.2 106 28 76/42 Mechanical Ventilator 30 92.2 6/17/18 00:00 105 6/16/18 23:45 83/44 6/16/18 23:22 112 22 30 6/16/18 22:15 108 28 118/88 100 6/16/18 22:10 109 27 87/47 100 6/16/18 22:05 109 28 88/52 100 6/16/18 22:04 110 28 86/65 100 Mechanical Ventilator 30 6/16/18 22:00 114 31 57/31 100 Mechanical Ventilator 30 6/16/18 21:55 113 29 101/67 100 Mechanical Ventilator 30 6/16/18 21:50 114 30 70/39 100 Mechanical Ventilator 30 6/16/18 21:45 111 27 70/31 100 Mechanical Ventilator 30 6/16/18 21:40 111 28 75/49 100 Mechanical Ventilator 30 6/16/18 21:35 113 30 70/36 100 Mechanical Ventilator 30 6/16/18 21:30 112 30 74/43 100 Mechanical Ventilator 30 6/16/18 21:25 112 28 78/45 100 Mechanical Ventilator 30 6/16/18 21:20 111 32 96/72 100 Mechanical Ventilator 30 6/16/18 21:15 111 31 51/18 100 Mechanical Ventilator 30 6/16/18 21:15 115 25 65 6/16/18 21:10 112 30 58/26 100 Mechanical Ventilator 30 6/16/18 21:08 112 29 63/25 100 Mechanical Ventilator 30 6/16/18 21:05 112 27 71/18 100 Mechanical Ventilator 30 6/16/18 21:00 110 31 45/11 100 Mechanical Ventilator 30 6/16/18 20:51 55/17 6/16/18 20:45 110 32 55/17 100 Mechanical Ventilator 30 6/16/18 20:37 111 30 63/32 100 Mechanical Ventilator 30 6/16/18 20:30 112 28 63/23 100 Mechanical Ventilator 30 6/16/18 20:21 112 29 61/37 100 Mechanical Ventilator 30 6/16/18 20:15 113 28 100 Mechanical Ventilator 30 6/16/18 20:06 118 27 73/52 100 Mechanical Ventilator 30 6/16/18 20:04 118 26 65/40 100 Mechanical Ventilator 30 6/16/18 20:02 118 26 55/21 100 Mechanical Ventilator 30 6/16/18 20:01 117 24 Mechanical Ventilator 30 6/16/18 20:00 30 6/16/18 20:00 92.3 118 25 100 Mechanical Ventilator 30 92.3 6/16/18 20:00 116 6/16/18 20:00 30 6/16/18 19:53 115 25 118/81 100 Mechanical Ventilator 30 6/16/18 19:45 114 26 100 Mechanical Ventilator 30 6/16/18 19:30 118 26 65 6/16/18 19:30 115 27 100 Mechanical Ventilator 30 6/16/18 19:30 117 24 Mechanical Ventilator 30 6/16/18 19:15 115 25 96 Mechanical Ventilator 30 6/16/18 19:00 113 22 122/103 97 Mechanical Ventilator 30 6/16/18 18:22 119 28 126/86 99 Mechanical Ventilator 30 6/16/18 18:00 30.0 6/16/18 17:55 94.5 115 26 70/55 100 Mechanical Ventilator 15.0 30 94.5 12/21/17 16:55 94.5 115 24 94.5 12/21/17 16:47 15.0 30 12/21/17 16:40 94.4 108 25 94.4 12/21/17 16:30 94.4 111 26 81/40 100 Mechanical Ventilator 15.0 30 94.4 12/21/17 16:00 112 21 83/42 100 Mechanical Ventilator 15.0 60 12/21/17 15:59 98.4 120 18 75/48 100 Mechanical Ventilator 15.0 60 98.4 12/21/17 15:41 15.0 60 12/21/17 15:30 18 75/48 12/21/17 15:30 120 18 75/48 100 Mechanical Ventilator 15.0 60 12/21/17 15:15 18 94/53 12/21/17 15:00 115 20 95/44 99 Mechanical Ventilator 15.0 60 12/21/17 15:00 20 95/44 12/21/17 15:00 20 95/44 12/21/17 14:56 114 34 Mechanical Ventilator 100 12/21/17 14:56 117 34 60 12/21/17 14:30 15.0 100 12/21/17 14:30 98.4 129 18 89/61 100 Mechanical Ventilator 15.0 100 98.4 12/21/17 14:05 98.5 110 16 76/47 99 Room Air 98.4 Intake and Output 12/21/17 12/22/17 19:00 07:00 Intake Total 1000 ml 9612.643 ml Output Total 3400 ml Balance 1000 ml 6212.643 ml Intake Oral 0 ml IV Total 1000 ml 4606.643 ml Blood Product 5006 ml Output Urine Total 0 ml Gastric Drainage Total 3400 ml # Voids 1 Laboratory Tests Test 12/21/17 14:25 12/21/17 16:18 12/21/17 16:33 12/21/17 19:50 White Blood Count 7.9 K/UL (4.8-10.8) 7.7 K/UL (4.8-10.8) Red Blood Count 2.72 M/UL (4.70-6.10) L 2.00 M/UL (4.70-6.10) L Hemoglobin 8.5 G/DL (14.2-18.0) L 5.9 G/DL (14.2-18.0) Hematocrit 26.0 % (42.0-52.0) L 19.7 % (42.0-52.0) L Mean Corpuscular Volume 95 FL (80-99) 98 FL (80-99) Mean Corpuscular Hemoglobin 31.3 PG (27.0-31.0) H 29.7 PG (27.0-31.0) Mean Corpuscular Hemoglobin Concent 32.9 G/DL (32.0-36.0) 30.2 G/DL (32.0-36.0) L Red Cell Distribution Width 13.6 % (11.6-14.8) 16.5 % (11.6-14.8) H Platelet Count 15 K/UL (150-450) L 13 K/UL (150-450) L Mean Platelet Volume 16.3 FL (6.5-10.1) H 9.8 FL (6.5-10.1) Neutrophils (%) (Auto) % (45.0-75.0) % (45.0-75.0) Lymphocytes (%) (Auto) % (20.0-45.0) % (20.0-45.0) Monocytes (%) (Auto) % (1.0-10.0) % (1.0-10.0) Eosinophils (%) (Auto) % (0.0-3.0) % (0.0-3.0) Basophils (%) (Auto) % (0.0-2.0) % (0.0-2.0) Differential Total Cells Counted 100 100 Neutrophils % (Manual) 61 % (45-75) 84 % (45-75) H Lymphocytes % (Manual) 33 % (20-45) 6 % (20-45) L Monocytes % (Manual) 3 % (1-10) 3 % (1-10) Eosinophils % (Manual) 1 % (0-3) 0 % (0-3) Basophils % (Manual) 2 % (0-2) 0 % (0-2) Band Neutrophils 0 % (0-8) 7 % (0-8) Platelet Estimate Decreased L Decreased L Platelet Morphology Normal Normal Hypochromasia 1+ 2+ Anisocytosis 1+ 1+ Prothrombin Time 16.7 SEC (9.30-11.50) H 23.9 SEC (9.30-11.50) H Prothromb Time International Ratio 1.6 (0.9-1.1) H 2.3 (0.9-1.1) H Activated Partial Thromboplast Time 34 SEC (23-33) H 101 SEC (23-33) H Sodium Level 139 MMOL/L (136-145) 144 MMOL/L (136-145) Potassium Level 2.9 MMOL/L (3.5-5.1) L 3.9 MMOL/L (3.5-5.1) Chloride Level 104 MMOL/L (98-107) 111 MMOL/L (98-107) H Carbon Dioxide Level 19 MMOL/L (21-32) L 8 MMOL/L (21-32) *L Anion Gap 16 mmol/L (5-15) H 25 mmol/L (5-15) H Blood Urea Nitrogen 9 mg/dL (7-18) 9 mg/dL (7-18) Creatinine 1.2 MG/DL (0.55-1.30) 1.6 MG/DL (0.55-1.30) H Estimat Glomerular Filtration Rate > 60 mL/min (>60) 45.1 mL/min (>60) Glucose Level 193 MG/DL (74-106) H 402 MG/DL (74-106) #H Calcium Level 7.1 MG/DL (8.5-10.1) L 5.8 MG/DL (8.5-10.1) *L Total Bilirubin 2.5 MG/DL (0.2-1.0) H Direct Bilirubin 1.5 MG/DL (0.0-0.3) H Aspartate Amino Transf (AST/SGOT) 214 U/L (15-37) H Alanine Aminotransferase (ALT/SGPT) 78 U/L (12-78) Alkaline Phosphatase 111 U/L (46-116) Total Protein 6.0 G/DL (6.4-8.2) L Albumin 2.4 G/DL (3.4-5.0) L Globulin 3.6 g/dL Albumin/Globulin Ratio 0.7 (1.0-2.7) L Triglycerides Level 89 MG/DL (30-150) Lipase 217 U/L (73-393) Urine Color Brown Urine Appearance Slightly cloudy Urine pH 6 (4.5-8.0) Urine Specific [place] 1.015 (1.005-1.035) Urine Protein 3+ (NEGATIVE) H Urine Glucose (UA) 2+ (NEGATIVE) H Urine Ketones 2+ (NEGATIVE) H Urine Occult Blood 2+ (NEGATIVE) H Urine Nitrite Positive (NEGATIVE) H Urine Bilirubin 3+ (NEGATIVE) H Urine Ictotest Positive Urine Urobilinogen 8 MG/DL (0.0-1.0) H Urine Leukocyte Esterase 1+ (NEGATIVE) H Urine RBC 10-15 /HPF (0 - 0) H Urine WBC 5-10 /HPF (0 - 0) H Urine Squamous Epithelial Cells None /LPF (NONE/OCC) Urine Amorphous Sediment Few /LPF (NONE) H Urine Bacteria Moderate /HPF (NONE) H Arterial Blood pH 7.230 (7.350-7.450) Arterial Blood Partial Pressure CO2 25.7 mmHg (35.0-45.0) L Arterial Blood Partial Pressure O2 330.4 mmHg (75.0-100.0) H Arterial Blood HCO3 10.4 mmol/L (22.0-26.0) L Arterial Blood Oxygen Saturation 98.9 % (92.0-98.0) H Arterial Blood Base Excess -15.6 Rom Test Positive Magnesium Level 1.5 MG/DL (1.8-2.4) L Test 12/21/17 20:32 12/22/17 00:24 12/22/17 02:45 12/22/17 06:55 Arterial Blood pH 6.713 (7.350-7.450) 6.699 (7.350-7.450) Arterial Blood Partial Pressure CO2 25.1 mmHg (35.0-45.0) L 26.6 mmHg (35.0-45.0) L Arterial Blood Partial Pressure O2 134.3 mmHg (75.0-100.0) H 372.8 mmHg (75.0-100.0) H Arterial Blood HCO3 3.1 mmol/L (22.0-26.0) L 3.2 mmol/L (22.0-26.0) L Arterial Blood Oxygen Saturation 95.4 % (92.0-98.0) 98.6 % (92.0-98.0) H Arterial Blood Base Excess -30.1 -29.9 Rom Test Positive Positive White Blood Count 4.2 K/UL (4.8-10.8) L 3.9 K/UL (4.8-10.8) L Red Blood Count 1.26 M/UL (4.70-6.10) L 1.68 M/UL (4.70-6.10) L Hemoglobin 3.6 G/DL (14.2-18.0) 4.9 G/DL (14.2-18.0) Hematocrit 12.5 % (42.0-52.0) #L 16.7 % (42.0-52.0) #L Mean Corpuscular Volume 99 FL (80-99) 99 FL (80-99) Mean Corpuscular Hemoglobin 28.3 PG (27.0-31.0) 29.5 PG (27.0-31.0) Mean Corpuscular Hemoglobin Concent 28.5 G/DL (32.0-36.0) L 29.7 G/DL (32.0-36.0) L Red Cell Distribution Width 15.9 % (11.6-14.8) H 13.9 % (11.6-14.8) Platelet Count 23 K/UL (150-450) #L 134 K/UL (150-450) #L Mean Platelet Volume 6.9 FL (6.5-10.1) 4.4 FL (6.5-10.1) L Neutrophils (%) (Auto) % (45.0-75.0) % (45.0-75.0) Lymphocytes (%) (Auto) % (20.0-45.0) % (20.0-45.0) Monocytes (%) (Auto) % (1.0-10.0) % (1.0-10.0) Eosinophils (%) (Auto) % (0.0-3.0) % (0.0-3.0) Basophils (%) (Auto) % (0.0-2.0) % (0.0-2.0) Neutrophils % (Manual) Pending 78 % (45-75) H Lymphocytes % (Manual) Pending 18 % (20-45) L Platelet Estimate Pending Decreased L Platelet Morphology Pending Normal Prothrombin Time 22.7 SEC (9.30-11.50) H 17.1 SEC (9.30-11.50) H Prothromb Time International Ratio 2.2 (0.9-1.1) H 1.6 (0.9-1.1) H Activated Partial Thromboplast Time > 150 SEC (23-33) *H Sodium Level 147 MMOL/L (136-145) H 147 MMOL/L (136-145) H Potassium Level 6.2 MMOL/L (3.5-5.1) #*H 6.2 MMOL/L (3.5-5.1) *H Chloride Level 114 MMOL/L (98-107) H 111 MMOL/L (98-107) H Carbon Dioxide Level 6 MMOL/L (21-32) *L 7 MMOL/L (21-32) *L Anion Gap 27 mmol/L (5-15) H 29 mmol/L (5-15) H Blood Urea Nitrogen 9 mg/dL (7-18) 9 mg/dL (7-18) Creatinine 2.0 MG/DL (0.55-1.30) H 2.0 MG/DL (0.55-1.30) H Estimat Glomerular Filtration Rate 34.9 mL/min (>60) 34.9 mL/min (>60) Glucose Level 320 MG/DL (74-106) H 393 MG/DL (74-106) H Lactic Acid Level 24.10 mmol/L (0.4-2.0) H Calcium Level 5.5 MG/DL (8.5-10.1) *L 5.8 MG/DL (8.5-10.1) *L Magnesium Level 1.9 MG/DL (1.8-2.4) 2.2 MG/DL (1.8-2.4) Total Bilirubin 1.5 MG/DL (0.2-1.0) H 1.5 MG/DL (0.2-1.0) H Direct Bilirubin 0.7 MG/DL (0.0-0.3) H 0.5 MG/DL (0.0-0.3) H Aspartate Amino Transf (AST/SGOT) 642 U/L (15-37) H 1439 U/L (15-37) H Alanine Aminotransferase (ALT/SGPT) 133 U/L (12-78) H 209 U/L (12-78) H Alkaline Phosphatase 41 U/L (46-116) L 42 U/L (46-116) L Ammonia 277 umol/L (11-32) H Total Protein 2.9 G/DL (6.4-8.2) #L 3.3 G/DL (6.4-8.2) L Albumin 1.2 G/DL (3.4-5.0) L 1.5 G/DL (3.4-5.0) L Globulin 1.7 g/dL 1.8 g/dL Albumin/Globulin Ratio 0.7 (1.0-2.7) L 0.8 (1.0-2.7) L Alpha Fetoprotein Pending Differential Total Cells Counted 100 Monocytes % (Manual) 2 % (1-10) Eosinophils % (Manual) 0 % (0-3) Basophils % (Manual) 0 % (0-2) Band Neutrophils 2 % (0-8) Phosphorus Level 8.3 MG/DL (2.5-4.9) H Test 12/22/17 11:00 White Blood Count 3.5 K/UL (4.8-10.8) L Red Blood Count 2.36 M/UL (4.70-6.10) L Hemoglobin 7.0 G/DL (14.2-18.0) #L Hematocrit 23.1 % (42.0-52.0) #L Mean Corpuscular Volume 98 FL (80-99) Mean Corpuscular Hemoglobin 29.6 PG (27.0-31.0) Mean Corpuscular Hemoglobin Concent 30.3 G/DL (32.0-36.0) L Red Cell Distribution Width 12.9 % (11.6-14.8) Platelet Count 41 K/UL (150-450) #L Mean Platelet Volume 5.3 FL (6.5-10.1) L Neutrophils (%) (Auto) % (45.0-75.0) Lymphocytes (%) (Auto) % (20.0-45.0) Monocytes (%) (Auto) % (1.0-10.0) Eosinophils (%) (Auto) % (0.0-3.0) Basophils (%) (Auto) % (0.0-2.0) Neutrophils % (Manual) Pending Lymphocytes % (Manual) Pending Platelet Estimate Pending Platelet Morphology Pending Prothrombin Time 21.1 SEC (9.30-11.50) H Prothromb Time International Ratio 2.0 (0.9-1.1) H Sodium Level 150 MMOL/L (136-145) H Potassium Level 5.4 MMOL/L (3.5-5.1) H Chloride Level 111 MMOL/L (98-107) H Carbon Dioxide Level 9 MMOL/L (21-32) *L Anion Gap 30 mmol/L (5-15) H Blood Urea Nitrogen 10 mg/dL (7-18) Creatinine 2.2 MG/DL (0.55-1.30) H Estimat Glomerular Filtration Rate 31.2 mL/min (>60) Glucose Level 460 MG/DL (74-106) H Calcium Level 5.4 MG/DL (8.5-10.1) *L Magnesium Level 2.0 MG/DL (1.8-2.4) Microbiology Date/Time Source Procedure Growth Status 12/21/17 16:18 Urine,Clean Catch Urine Culture - Preliminary Resulted Height (Feet): 5 Height (Inches): 9.00 Weight (Pounds): 182 Medications Current Medications Medications (Trade) Dose Ordered Sig/Maria Ines Route PRN Reason Start Time Stop Time Status Last Admin Dose Admin Calcium Chloride (CaCl Syringe) 2,000 mg ONCE ONCE IVP 12/22/17 13:00 12/22/17 13:01 UNV Dextrose/Sodium Chloride 1,000 ml @ 200 mls/hr Q5H IV 12/22/17 20:38 01/20/18 20:37 Dopamine HCl/ Dextrose 250 ml @ 0 mls/hr Q24H IV 12/21/17 20:46 01/20/18 20:45 12/22/17 12:18 Fentanyl Citrate 1000 mcg/Sodium Chloride 100 ml @ 0 mls/hr Q24H IV 12/22/17 07:30 12/29/17 07:29 Folic Acid 1 mg/ Magnesium Sulfate 2000 mg/ Multivitamins 10 ml/Sodium Chloride 1,014.2 ml @ 100 mls/ hr Q24H IV 12/21/17 21:00 01/20/18 20:59 12/22/17 00:26 Midazolam HCl (Versed 2mg/2ml vial) 1 mg Q4H PRN IVP Agitation 12/22/17 07:45 01/21/18 07:44 Norepinephrine Bitartrate 8 mg/ Dextrose 558 ml @ 0 mls/hr Q24H IV 12/22/17 12:00 01/21/18 11:59 12/22/17 12:17 Octreotide Acetate 500 mcg/ Sodium Chloride 500 ml @ 50 mls/hr Q10H IV 12/21/17 18:45 01/20/18 18:44 12/22/17 03:29 Pantoprazole 80 mg/Sodium Chloride 250 ml @ 25 mls/hr Q10H IV 12/21/17 22:00 01/20/18 21:59 12/22/17 07:37 Piperacillin Sod/ Tazobactam Sod 3.375 gm/Sodium Chloride 110 ml @ 27.5 mls/hr Q8H IVPB 12/22/17 12:00 12/28/17 11:59 Sodium Bicarbonate 150 ml/Dextrose/ Sodium Chloride 1,150 ml @ 200 mls/hr Q5H45M IV 12/21/17 23:00 01/20/18 22:59 12/22/17 04:47 Thiamine HCl 100 mg/Sodium Chloride 56 ml @ 112 mls/hr Q24H IVPB 12/21/17 21:00 01/20/18 20:59 12/22/17 03:50 Vasopressin 100 units/Sodium Chloride 100 ml @ 0 mls/hr Q24H IV 12/21/17 23:45 01/20/18 23:44 12/21/17 23:45 Assessment/Plan Problem List: (1) Acute upper GI hemorrhage Assessment & Plan: 57M with alcoholic cirrhosis presents with acute severe upper GI bleed from gastric and esophageal varices. Hypothermia, shock, hypotensive on pressors, transfused 17units blood products thus far, labs worsening. Unfortunately very complex case and care. He is being actively resuscitated without significant improvement. He has had upper endoscopy with bands of varices and clips but continues to bleed. His coagulopathy worsens and he is deteriorating. Very Very poor prognosis. Can consider TIPS or surgical shunt but unfortunately not available here and in given condition I'm not sure if would be of any benefit. Will continue with active resuscitation. 2 more units of FFP PRBC Plt transfuse now Calcium fluids trend labs. thank you for this consultation. will follow with you ICD Codes: K92.2 - Gastrointestinal hemorrhage, unspecified SNOMED: 82713483 (2) Shock ICD Codes: R57.9 - Shock, unspecified SNOMED: 94102190 Status: deteriorating Shawn Dee Dec 22, 2017 13:02
[2017-12-22] MEDS: Sodium Bicarbonate 150 ML in 1/2 NS 1000ml 1,000 ML IV SCH ×2 (13:24→19:41)
[2017-12-22] MEDS: Piperacillin/Tazobactam 3.375 GM in NS 110 ML IVPB SCH ×2 (13:24→19:41)
[2017-12-22] MEDS ORDERED: Calcium Chloride 10% 10ml carpuject IVP SCH (13:30)
--- NOTE | 2017-12-22 13:53 | General Progress Note ---
Assessment/Plan Problem List: (1) Thrombocytopenia ICD Codes: D69.6 - Thrombocytopenia, unspecified SNOMED: 889872490 (2) Shock ICD Codes: R57.9 - Shock, unspecified SNOMED: 94342375 (3) Alcoholic cirrhosis ICD Codes: K70.30 - Alcoholic cirrhosis of liver without ascites SNOMED: 052484578 (4) Alcoholism ICD Codes: F10.20 - Alcohol dependence, uncomplicated SNOMED: 7336056 (5) Hematemesis ICD Codes: K92.0 - Hematemesis SNOMED: 0196652 (6) Anemia ICD Codes: D64.9 - Anemia, unspecified SNOMED: 988906466 (7) Transaminitis ICD Codes: R74.0 - Nonspecific elevation of levels of transaminase and lactic acid dehydrogenase [LDH] SNOMED: 089951525, 579189772 (8) Hyperkalemia ICD Codes: E87.5 - Hyperkalemia SNOMED: 41862343 (9) UTI (urinary tract infection) ICD Codes: N39.0 - Urinary tract infection, site not specified SNOMED: 48259186 (10) Endotracheally intubated ICD Codes: Z97.8 - Presence of other specified devices SNOMED: 886285844 (11) Hyperglycemia ICD Codes: R73.9 - Hyperglycemia, unspecified SNOMED: 25981080 (12) Esophageal varix bleeding ICD Codes: I85.01 - Esophageal varices with bleeding SNOMED: 72117571 (13) Oliguria ICD Codes: R34 - Anuria and oliguria SNOMED: 52301358 Status: other - critical condition Assessment/Plan Discussion: Patient came in for UGIB and has receiving multiple units of plt, pRBC, and FFP. Patient underwent endoscopy on 12/22 with banding and clipping to esophageal varix bleeding. Patient is also maxed out on multiple pressures, namely DA, NE, and vasopressin. At this time, patient continues to be severely hypotensive with worsening coagulopathy. - GI consulted, appreciate rec's - Nephrology consulted - General surgery consulted, appreciate rec's - Continue in ICU - s/p EgD showing esophageal varix bleeding s/p banding x 2 and clipping - s/p 10 units pRBC, 8 units FFP, 6 units plt - Octreotide gtt - PPi gtt - maxed out on vasopressin, NE, DA. continue pressors to maintain MAP > 65 - aggressive IV hydration/boluses - IV bicarb - monitor CBC serially q3-6hr - IV folate and thiamine. - Trend LFTs - Trend coags - continue vent support - monitor and correct electrolytes prn - IV zosyn for UTI - F/u urine cx - F/u blood cx - pain control and supportive care DVT Prophylaxis: SCD Code Status: Full Hospital Classification Declaration: Based on this initial evaluation, and depending on the patient's clinical course, I anticipate that this patient will require hospitalization for 3-4 days for shock, GI bleed, and close respiratory/ hemodynamic monitoring. Disposition: Once the patient is stable to leave the hospital, I anticipate the patient will likely be discharged to the following environment: alcoholic rehab I spent 45 minutes on this patient's case, and 35 minutes were dedicated to counseling and/or care coordination. Discussed with patient/family, nursing staff, SW/CM, channel sales director, nurses, and family at bedside regarding clinical status, treatment course, and disposition planning. Time of note may not reflect time of encounter. Thank you, Dr. Tapia, for this consultation. Subjective Date patient seen: Dec 22, 2017 Time patient seen: 13:46 Allergies: Coded Allergies: No Known Allergies (Unverified , 12/21/17) Subjective - remains in ICU in critical condition - s/p multiple units of FFP, pRBC, and platelets - s/p EgD with esophageal varices bleed with banding x 2 and clipping - remains intubated on multiple pressors. continues to be hypotensive - no urine output - Family at bedside Objective Last 24 Hour Vital Signs Date Time Temp Pulse Resp B/P (MAP) Pulse Ox O2 Delivery O2 Flow Rate FiO2 12/22/17 13:15 75 24 43/23 95 Mechanical Ventilator 100 12/22/17 13:00 74 25 42/23 95 Mechanical Ventilator 100 12/22/17 12:53 84 30 100 12/22/17 12:45 76 24 58/34 95 Mechanical Ventilator 100 12/22/17 12:30 86 24 52/42 95 Mechanical Ventilator 100 12/22/17 12:18 61/25 12/22/17 12:17 61/26 12/22/17 12:15 88 25 50/42 95 Mechanical Ventilator 100 12/22/17 12:00 88 27 47/13 95 Mechanical Ventilator 100 6/17/18 12:00 100 6/17/18 12:00 87 6/17/18 12:00 100 24 100 6/17/18 11:45 93.6 87 24 61/51 96 Mechanical Ventilator 100 93.6 6/17/18 11:31 100 24 100 6/17/18 11:30 85 28 84/64 96 Mechanical Ventilator 100 6/17/18 11:22 74 24 100 6/17/18 11:15 85 24 65/29 96 Mechanical Ventilator 100 6/17/18 11:14 59/25 6/17/18 11:00 80 24 72/54 100 Mechanical Ventilator 100 6/17/18 10:45 76 24 97/63 100 Mechanical Ventilator 100 6/17/18 10:30 100 23 51/21 100 Mechanical Ventilator 100 6/17/18 10:15 97 24 63/21 100 Mechanical Ventilator 100 6/17/18 10:00 97 24 60/28 100 Mechanical Ventilator 100 6/17/18 09:45 88 24 69/22 100 Mechanical Ventilator 100 6/17/18 09:30 82 24 67/28 100 Mechanical Ventilator 100 6/17/18 09:15 78 24 63/20 100 Mechanical Ventilator 100 6/17/18 09:08 92 24 100 6/17/18 09:00 96.0 91 23 47/20 100 Mechanical Ventilator 100 96.0 6/17/18 08:45 92 24 80/51 100 Mechanical Ventilator 100 6/17/18 08:30 77 24 79/51 100 Mechanical Ventilator 100 6/17/18 08:15 80 24 54/33 100 Mechanical Ventilator 100 6/17/18 08:00 100 6/17/18 08:00 92 6/17/18 08:00 77 24 53/33 100 Mechanical Ventilator 100 6/17/18 07:45 77 24 53/30 100 Mechanical Ventilator 100 6/17/18 07:31 80/42 6/17/18 07:30 96 24 89/61 100 Mechanical Ventilator 100 6/17/18 07:28 97 24 100 6/17/18 07:15 98 23 106/52 100 Mechanical Ventilator 100 6/17/18 07:00 100 24 52/33 100 Mechanical Ventilator 100 6/17/18 06:45 98 23 41/15 100 Mechanical Ventilator 100 6/17/18 06:30 100 22 100 Mechanical Ventilator 100 6/17/18 06:15 100 23 69/54 100 Mechanical Ventilator 100 6/17/18 06:00 99 24 127/103 100 Mechanical Ventilator 100 6/17/18 05:45 99 24 100/89 Mechanical Ventilator 100 6/17/18 05:30 101 23 140/107 Mechanical Ventilator 100 6/17/18 05:15 92.1 101 23 93/48 100 Mechanical Ventilator 100 92.1 6/17/18 05:06 100 22 112/79 100 Mechanical Ventilator 100 6/17/18 04:49 54/15 6/17/18 04:45 99 21 54/15 100 Mechanical Ventilator 100 6/17/18 04:43 99 28 100 6/17/18 04:36 99 24 63/16 100 Mechanical Ventilator 100 6/17/18 04:30 101 22 46/20 100 Mechanical Ventilator 100 6/17/18 04:15 87 23 69/48 98 Mechanical Ventilator 100 6/17/18 04:10 85 24 72/52 91 Mechanical Ventilator 100 6/17/18 04:00 100 6/17/18 04:00 87 23 63/33 89 Mechanical Ventilator 100 6/17/18 04:00 93 6/17/18 03:45 91 25 65/53 Mechanical Ventilator 100 6/17/18 03:30 97 24 78/61 Mechanical Ventilator 100 6/17/18 03:15 101 24 69/51 Mechanical Ventilator 100 6/17/18 03:03 61/29 6/17/18 03:00 101 25 61/29 70 Mechanical Ventilator 100 6/17/18 02:58 101 27 100 6/17/18 02:52 96/64 6/17/18 02:45 88 22 96/64 Mechanical Ventilator 100 6/17/18 02:30 104 23 87/59 82 Mechanical Ventilator 100 6/17/18 02:15 106 25 99/82 62 Mechanical Ventilator 100 6/17/18 02:15 106 25 62 Mechanical Ventilator 100 6/17/18 02:00 106 26 93/78 77 Mechanical Ventilator 100 6/17/18 01:45 109 29 93/51 6/17/18 01:45 109 29 93/51 85 Mechanical Ventilator 100 6/17/18 01:30 110 29 77/40 83 Mechanical Ventilator 100 6/17/18 01:30 110 29 77/40 6/17/18 01:15 111 33 65/31 89 Mechanical Ventilator 30 6/17/18 01:15 111 33 89 6/17/18 01:12 111 23 30 6/17/18 01:09 111 30 85/50 6/17/18 01:00 108 28 62/22 98 Mechanical Ventilator 30 617/18 01:00 108 28 62/22 98 6/17/18 00:47 108 31 82/37 6/17/18 00:47 108 31 82/37 Mechanical Ventilator 30 617/18 00:45 108 31 617/18 00:37 Mechanical Ventilator 617/18 00:32 109 34 51/27 77 Mechanical Ventilator 30 617/18 00:32 109 34 51/27 77 6/17/18 00:30 108 33 81/47 81 Mechanical Ventilator 30 617/18 00:30 108 33 81/47 81 /17/18 00:15 104 31 83/44 100 17/18 00:15 104 31 83/44 100 Mechanical Ventilator 30 617/18 00:07 106 32 80/25 6/17/18 00:07 106 32 80/25 Mechanical Ventilator 30 12/22/18 00:00 100 17/18 00:00 106 28 76/42 6/17/18 00:00 92.2 106 28 76/42 Mechanical Ventilator 30 92.2 17/18 00:00 105 16/18 23:45 83/44 6/16/18 23:22 112 22 30 6/16/18 22:15 108 28 118/88 100 6/16/18 22:10 109 27 87/47 100 616/18 22:05 109 28 88/52 100 6/16/18 22:04 110 28 86/65 100 Mechanical Ventilator 30 6/16/18 22:00 114 31 57/31 100 Mechanical Ventilator 30 6/16/18 21:55 113 29 101/67 100 Mechanical Ventilator 30 6/16/18 21:50 114 30 70/39 100 Mechanical Ventilator 30 6/16/18 21:45 111 27 70/31 100 Mechanical Ventilator 30 6/16/18 21:40 111 28 75/49 100 Mechanical Ventilator 30 6/16/18 21:35 113 30 70/36 100 Mechanical Ventilator 30 6/16/18 21:30 112 30 74/43 100 Mechanical Ventilator 30 6/16/18 21:25 112 28 78/45 100 Mechanical Ventilator 30 6/16/18 21:20 111 32 96/72 100 Mechanical Ventilator 30 6/16/18 21:15 111 31 51/18 100 Mechanical Ventilator 30 6/16/18 21:15 115 25 65 6/16/18 21:10 112 30 58/26 100 Mechanical Ventilator 30 6/16/18 21:08 112 29 63/25 100 Mechanical Ventilator 30 6/16/18 21:05 112 27 71/18 100 Mechanical Ventilator 30 6/16/18 21:00 110 31 45/11 100 Mechanical Ventilator 30 6/16/18 20:51 55/17 6/16/18 20:45 110 32 55/17 100 Mechanical Ventilator 30 6/16/18 20:37 111 30 63/32 100 Mechanical Ventilator 30 6/16/18 20:30 112 28 63/23 100 Mechanical Ventilator 30 6/16/18 20:21 112 29 61/37 100 Mechanical Ventilator 30 6/16/18 20:15 113 28 100 Mechanical Ventilator 30 6/16/18 20:06 118 27 73/52 100 Mechanical Ventilator 30 6/16/18 20:04 118 26 65/40 100 Mechanical Ventilator 30 6/16/18 20:02 118 26 55/21 100 Mechanical Ventilator 30 6/16/18 20:01 117 24 Mechanical Ventilator 30 6/16/18 20:00 30 6/16/18 20:00 92.3 118 25 100 Mechanical Ventilator 30 92.3 6/16/18 20:00 116 6/16/18 20:00 30 6/16/18 19:53 115 25 118/81 100 Mechanical Ventilator 30 6/16/18 19:45 114 26 100 Mechanical Ventilator 30 6/16/18 19:30 118 26 65 6/16/18 19:30 115 27 100 Mechanical Ventilator 30 6/16/18 19:30 117 24 Mechanical Ventilator 30 6/16/18 19:15 115 25 96 Mechanical Ventilator 30 6/16/18 19:00 113 22 122/103 97 Mechanical Ventilator 30 6/16/18 18:22 119 28 126/86 99 Mechanical Ventilator 30 6/16/18 18:00 30.0 6/16/18 17:55 94.5 115 26 70/55 100 Mechanical Ventilator 15.0 30 94.5 6/16/18 16:55 94.5 115 24 94.5 6/16/18 16:47 15.0 30 6/16/18 16:40 94.4 108 25 94.4 12/21/17 16:30 94.4 111 26 81/40 100 Mechanical Ventilator 15.0 30 94.4 12/21/17 16:00 112 21 83/42 100 Mechanical Ventilator 15.0 60 18 15:59 98.4 120 18 75/48 100 Mechanical Ventilator 15.0 60 98.4 12/21/17 15:41 15.0 60 18 15:30 18 75/48 18 15:30 120 18 75/48 100 Mechanical Ventilator 15.0 60 12/21/17 15:15 18 94/53 12/21/17 15:00 115 20 95/44 99 Mechanical Ventilator 15.0 60 12/21/17 15:00 20 95/44 12/21/17 15:00 20 95/44 12/21/17 14:56 114 34 Mechanical Ventilator 100 12/21/17 14:56 117 34 60 12/21/17 14:30 15.0 100 12/21/17 14:30 98.4 129 18 89/61 100 Mechanical Ventilator 15.0 100 98.4 12/21/17 14:05 98.5 110 16 76/47 99 Room Air 98.4 Intake and Output 12/21/17 12/22/17 19:00 07:00 Intake Total 1000 ml 9612.643 ml Output Total 3400 ml Balance 1000 ml 6212.643 ml Intake Oral 0 ml IV Total 1000 ml 4606.643 ml Blood Product 5006 ml Output Urine Total 0 ml Gastric Drainage Total 3400 ml # Voids 1 Laboratory Tests 12/21/17 14:25: White Blood Count 7.9, Red Blood Count 2.72L, Hemoglobin 8.5L, Hematocrit 26.0L , Mean Corpuscular Volume 95, Mean Corpuscular Hemoglobin 31.3H, Mean Corpuscular Hemoglobin Concent 32.9, Red Cell Distribution Width 13.6, Platelet Count 15L, Mean Platelet Volume 16.3H, Neutrophils (%) (Auto) , Lymphocytes (%) (Auto) , Monocytes (%) (Auto) , Eosinophils (%) (Auto) , Basophils (%) (Auto) , Differential Total Cells Counted 100, Neutrophils % (Manual) 61, Lymphocytes % ( Manual) 33, Monocytes % (Manual) 3, Eosinophils % (Manual) 1, Basophils % ( Manual) 2, Band Neutrophils 0, Platelet Estimate DecreasedL, Platelet Morphology Normal, Hypochromasia 1+, Anisocytosis 1+, Prothrombin Time 16.7H, Prothromb Time International Ratio 1.6H, Activated Partial Thromboplast Time 34H , Sodium Level 139, Potassium Level 2.9L, Chloride Level 104, Carbon Dioxide Level 19L, Anion Gap 16H, Blood Urea Nitrogen 9, Creatinine 1.2, Estimat Glomerular Filtration Rate > 60, Glucose Level 193H, Calcium Level 7.1L, Total Bilirubin 2.5H, Direct Bilirubin 1.5H, Aspartate Amino Transf (AST/SGOT) 214H, Alanine Aminotransferase (ALT/SGPT) 78, Alkaline Phosphatase 111, Total Protein 6.0L, Albumin 2.4L, Globulin 3.6, Albumin/Globulin Ratio 0.7L, Triglycerides Level 89, Lipase 217 12/21/17 16:18: Urine Color Brown, Urine Appearance Slightly cloudy, Urine pH 6, Urine Specific [place] 1.015, Urine Protein 3+H, Urine Glucose (UA) 2+H, Urine Ketones 2+H, Urine Occult Blood 2+H, Urine Nitrite PositiveH, Urine Bilirubin 3+H, Urine Ictotest Positive, Urine Urobilinogen 8H, Urine Leukocyte Esterase 1+H, Urine RBC 10-15H, Urine WBC 5-10H, Urine Squamous Epithelial Cells None, Urine Amorphous Sediment FewH, Urine Bacteria ModerateH 12/21/17 16:33: Arterial Blood pH 7.230*L, Arterial Blood Partial Pressure CO2 25.7L, Arterial Blood Partial Pressure O2 330.4H, Arterial Blood HCO3 10.4L, Arterial Blood Oxygen Saturation 98.9H, Arterial Blood Base Excess -15.6, Rom Test Positive 12/21/17 19:50: White Blood Count 7.7, Red Blood Count 2.00L, Hemoglobin 5.9#*L, Hematocrit 19.7L, Mean Corpuscular Volume 98, Mean Corpuscular Hemoglobin 29.7, Mean Corpuscular Hemoglobin Concent 30.2L, Red Cell Distribution Width 16.5H, Platelet Count 13L, Mean Platelet Volume 9.8, Neutrophils (%) (Auto) , Lymphocytes (%) (Auto) , Monocytes (%) (Auto) , Eosinophils (%) (Auto) , Basophils (%) (Auto) , Differential Total Cells Counted 100, Neutrophils % ( Manual) 84H, Lymphocytes % (Manual) 6L, Monocytes % (Manual) 3, Eosinophils % ( Manual) 0, Basophils % (Manual) 0, Band Neutrophils 7, Platelet Estimate DecreasedL, Platelet Morphology Normal, Hypochromasia 2+, Anisocytosis 1+, Prothrombin Time 23.9H, Prothromb Time International Ratio 2.3H, Activated Partial Thromboplast Time 101H, Sodium Level 144, Potassium Level 3.9, Chloride Level 111H, Carbon Dioxide Level 8*L, Anion Gap 25H, Blood Urea Nitrogen 9, Creatinine 1.6H, Estimat Glomerular Filtration Rate 45.1, Glucose Level 402#H, Calcium Level 5.8*L, Magnesium Level 1.5L 12/21/17 20:32: Arterial Blood pH 6.713*L, Arterial Blood Partial Pressure CO2 25.1L, Arterial Blood Partial Pressure O2 134.3H, Arterial Blood HCO3 3.1L, Arterial Blood Oxygen Saturation 95.4, Arterial Blood Base Excess -30.1, Rom Test Positive 12/22/17 00:24: Arterial Blood pH 6.699*L, Arterial Blood Partial Pressure CO2 26.6L, Arterial Blood Partial Pressure O2 372.8H, Arterial Blood HCO3 3.2L, Arterial Blood Oxygen Saturation 98.6H, Arterial Blood Base Excess -29.9, Rom Test Positive 12/22/17 02:45: White Blood Count 4.2L, Red Blood Count 1.26L, Hemoglobin 3.6#*L, Hematocrit 12.5#L, Mean Corpuscular Volume 99, Mean Corpuscular Hemoglobin 28.3, Mean Corpuscular Hemoglobin Concent 28.5L, Red Cell Distribution Width 15.9H, Platelet Count 23#L, Mean Platelet Volume 6.9, Neutrophils (%) (Auto) , Lymphocytes (%) (Auto) , Monocytes (%) (Auto) , Eosinophils (%) (Auto) , Basophils (%) (Auto) , Differential Total Cells Counted 100, Neutrophils % ( Manual) 81H, Lymphocytes % (Manual) 12L, Monocytes % (Manual) 5, Eosinophils % ( Manual) 0, Basophils % (Manual) 0, Band Neutrophils 2, Platelet Estimate DecreasedL, Platelet Morphology Normal, Prothrombin Time 22.7H, Prothromb Time International Ratio 2.2H, Activated Partial Thromboplast Time > 150*H, Sodium Level 147H, Potassium Level 6.2#*H, Chloride Level 114H, Carbon Dioxide Level 6* L, Anion Gap 27H, Blood Urea Nitrogen 9, Creatinine 2.0H, Estimat Glomerular Filtration Rate 34.9, Glucose Level 320H, Lactic Acid Level 24.10H, Calcium Level 5.5*L, Magnesium Level 1.9, Total Bilirubin 1.5H, Direct Bilirubin 0.7H, Aspartate Amino Transf (AST/SGOT) 642H, Alanine Aminotransferase (ALT/SGPT) 133H , Alkaline Phosphatase 41L, Ammonia 277H, Total Protein 2.9#L, Albumin 1.2L, Globulin 1.7, Albumin/Globulin Ratio 0.7L, Alpha Fetoprotein [Pending] 12/22/17 06:55: White Blood Count 3.9L, Red Blood Count 1.68L, Hemoglobin 4.9#*L, Hematocrit 16.7#L, Mean Corpuscular Volume 99, Mean Corpuscular Hemoglobin 29.5, Mean Corpuscular Hemoglobin Concent 29.7L, Red Cell Distribution Width 13.9, Platelet Count 134#L, Mean Platelet Volume 4.4L, Neutrophils (%) (Auto) , Lymphocytes (%) (Auto) , Monocytes (%) (Auto) , Eosinophils (%) (Auto) , Basophils (%) (Auto) , Differential Total Cells Counted 100, Neutrophils % ( Manual) 78H, Lymphocytes % (Manual) 18L, Monocytes % (Manual) 2, Eosinophils % ( Manual) 0, Basophils % (Manual) 0, Band Neutrophils 2, Platelet Estimate DecreasedL, Platelet Morphology Normal, Prothrombin Time 17.1H, Prothromb Time International Ratio 1.6H, Sodium Level 147H, Potassium Level 6.2*H, Chloride Level 111H, Carbon Dioxide Level 7*L, Anion Gap 29H, Blood Urea Nitrogen 9, Creatinine 2.0H, Estimat Glomerular Filtration Rate 34.9, Glucose Level 393H, Calcium Level 5.8*L, Magnesium Level 2.2, Total Bilirubin 1.5H, Direct Bilirubin 0.5H, Aspartate Amino Transf (AST/SGOT) 1439H, Alanine Aminotransferase (ALT/SGPT) 209H, Alkaline Phosphatase 42L, Total Protein 3.3L, Albumin 1.5L, Globulin 1.8, Albumin/Globulin Ratio 0.8L, Phosphorus Level 8.3H 12/22/17 11:00: White Blood Count 3.5L, Red Blood Count 2.36L, Hemoglobin 7.0#L, Hematocrit 23.1 #L, Mean Corpuscular Volume 98, Mean Corpuscular Hemoglobin 29.6, Mean Corpuscular Hemoglobin Concent 30.3L, Red Cell Distribution Width 12.9, Platelet Count 41#L, Mean Platelet Volume 5.3L, Neutrophils (%) (Auto) , Lymphocytes (%) (Auto) , Monocytes (%) (Auto) , Eosinophils (%) (Auto) , Basophils (%) (Auto) , Differential Total Cells Counted 100, Neutrophils % ( Manual) 78H, Lymphocytes % (Manual) 13L, Monocytes % (Manual) 2, Eosinophils % ( Manual) 0, Basophils % (Manual) 0, Band Neutrophils 7, Nucleated Red Blood Cells , Platelet Estimate DecreasedL, Platelet Morphology See comment, Prothrombin Time 21.1H, Prothromb Time International Ratio 2.0H, Sodium Level 150H, Potassium Level 5.4H, Chloride Level 111H, Carbon Dioxide Level 9*L, Anion Gap 30H, Blood Urea Nitrogen 10, Creatinine 2.2H, Estimat Glomerular Filtration Rate 31.2, Glucose Level 460H, Calcium Level 5.4*L, Magnesium Level 2.0 Height (Feet): 5 Height (Inches): 9.00 Weight (Pounds): 182 General Appearance: other - intubated EENT: PERRL/EOMI Neck: non-tender, normal alignment, supple Cardiovascular: tachycardia Respiratory/Chest: chest wall non-tender, lungs clear, other - intubated Abdomen: normal bowel sounds, non tender, soft Genitourinary/Rectal: other - +abdi Neurologic: other - on sedatives for intubation Pearl Tom NP Dec 22, 2017 13:53
[2017-12-22] MEDS ORDERED: DOPamine 400mg/250ml 250 ML IV ONE (17:04)
[2017-12-22 17:18] LABS: HEMATOCRIT 15.6 % (42.0-52.0); MEAN CORPUSCULAR VOLUME 95 FL (80-99); PLATELET COUNT 86 K/UL (150-450); RED BLOOD COUNT 1.65 M/UL (4.70-6.10); RED CELL DISTRIBUTION WIDTH 13.2 % (11.6-14.8); WHITE BLOOD COUNT 2.8 K/UL (4.8-10.8)
[2017-12-22 17:35] LABS: INR 1.9 (0.9-1.1)
[2017-12-22 17:37] LABS: ANION GAP 31 mmol/L (5-15); BLOOD UREA NITROGEN 7 mg/dL (7-18); CALCIUM 6.7 MG/DL (8.5-10.1); CHLORIDE 110 MMOL/L (98-107); CREATININE 2.4 MG/DL (0.55-1.30); POTASSIUM 5.5 MMOL/L (3.5-5.1); SODIUM 148 MMOL/L (136-145)
[2017-12-22 17:39] LABS: CARBON DIOXIDE 7 MMOL/L (21-32)
[2017-12-22] MEDS: NovoLOG Insulin Flexpen SUBQ SCH ×2 (18:08→21:24)
--- NOTE | 2017-12-22 18:55 | Consultation ---
Consult Note Assessment/Plan Renal consult dictated # [id number] Ronald Caballero MD Dec 22, 2017 18:55
[2017-12-22] MEDS ORDERED: Sodium Bicarbonate 50ml Carp IV SCH (20:30)
[2017-12-22] MEDS ORDERED: D5NS 1,000 ML IV SCH (20:38)
[2017-12-22] MEDS ORDERED: Sterile Water For Irrig 2000ml IRRIG ONE (21:47)
--- NOTE | 2017-12-22 23:45 | Consultation ---
DATE OF CONSULTATION: 12/22/2017 NEPHROLOGY CONSULTATION CONSULTING PHYSICIAN: Ronald Caballero M.D. REFERRING PHYSICIAN: Cj Tapia M.D. REASON FOR CONSULTATION: Acute renal failure. HISTORY OF PRESENT ILLNESS: This is a 57-year-old, unfortunate, male with alcoholic liver cirrhosis, who was admitted with projectile bright red bleed emesis. I was asked to see him because of worsening renal failure. The patient has been acidotic. The question came up if the patient would benefit from dialysis. Currently, the patient is intubated. As of today, he has received about 17 units of packed red blood cells. He is still actively bleeding. Also, he had an EGD done to try to stop the bleeding and it he has been unsuccessful so far. The patient is currently DNR. He is intubated. PAST MEDICAL HISTORY: As above. ALLERGIES: Unknown. SOCIAL HISTORY: Unobtainable except history of alcohol abuse. REVIEW OF SYSTEMS: Unobtainable. PHYSICAL EXAMINATION: GENERAL: The patient is a 57-year-old male, who is orally intubated. VITAL SIGNS: Blood pressure is 52/26, pulse is 68, and respirations 30. HEENT: Pale conjunctivae. Anicteric sclerae. LUNGS: Coarse breath sounds. HEART: S1 and S2 with distant heart sounds. ABDOMEN: Distended. EXTREMITIES: Bilateral pedal edema. LABORATORY FINDINGS: The chemistry panel shows a serum sodium of 148, potassium 5.5, chloride 110, carbon dioxide 7, BUN of 7, creatinine 2.4, and glucose is 487. CBC shows WBC of 2.8, hematocrit is 5, hemoglobin is 15.6, and platelets are 86,000. ASSESSMENT: This is a 57-year-old unfortunate male with history of upper gastrointestinal bleed as a result of complication of liver cirrhosis. He has developed acute renal failure from hemorrhagic shock and acute tubular necrosis. He is not a candidate for an dialysis at this point and his prognosis is poor. PLAN: I would consider comfort measures at this point and refrain from any other intervention. Thank you very much, Dr. Tapia, for this consultation. Ronald Caballero M.D. DR: Marcie JOB#: [id number] CC:
--- NOTE | 2017-12-23 10:01 | Operative Note - Dictated ---
DATE OF OPERATION: 12/22/2017 PROCEDURE: Upper gastrointestinal endoscopy with endoscopic clipping and endoscopic band ligation. SURGEON: Shameka Frazier M.D. ANESTHESIA: Please see the separate Anesthesia notes for details. PRE-ENDOSCOPIC DIAGNOSIS: Acute upper gastrointestinal bleeding. POST-ENDOSCOPIC DIAGNOSES: 1. Esophageal varices. 2. Bleeding from cardia lesion as described below. 3. Status post endoscopic treatment as described below. PROCEDURE IN DETAIL: The procedure, its risks, indications, alternatives, and complications were explained to the patient's family and informed consent was obtained. The patient was approached in the supine position and diagnostic upper endoscope was introduced through the oropharynx and advanced to the duodenum. The endoscope was then replaced with a therapeutic double channel endoscope traversed in the same areas. Upon initial entry, the esophagus was full of bright red blood as was the proximal stomach and the duodenum. Extensive lavage and suction was done to clear all three areas of blood. Upon initial investigation, there appeared to be no acute bleeding source, but suddenly, there was a gush of nonpulsatile stream of blood that was seen on the monitor emanating from a point in the proximal cardia. There did not appear to be pulsation to this forceful stream nor was there an ulcer at the base this forceful stream. The location of bleed was about 1 to 2 cm away from the gastroesophageal junction on the gastric side. It also turned, also coincided with single column of varix that was seen in the bottom half of the esophagus. The esophagus itself had one very small varix and one larger varix, which was in line with the bleeding area in the cardia. Two Endoclips were placed on the bleeding lesion in the cardia to suppress the bleeding. After its placement, it was noted to still be oozing, but not severely bleeding 03:29 initially. Because of the continuity of this lesion with the esophageal varix, the decision was made to proceed with esophageal band ligation. An attempt was made in retroflexed view to band the gastric cardia area, but this is not felt to be feasible. Therefore, the lower esophagus was banded x2 in the varix with good results. At the end of procedure, there was no active bleeding either from the esophageal band ligation or from the cardia Endoclip placement. One of the two Endoclips had fallen off during the intervention, but the other one was still on and there was apparent 04:34 hemostasis. The endoscope was therefore removed and the patient was left in critical condition in the ICU. RECOMMENDATIONS: 1. Keep the patient NPO. 2. Noted there is a gastric tube placement. 3. Continue with aggressive blood product support. 4. Continue Sandostatin and proton pump inhibitor drips. 5. Monitor labs every three to four hours. 6. Consideration to transfer to an outside hospital for emergency TIPS procedure. Shameka Frazier M.D. DR: Francisca JOB#: [id number] CC:
--- NOTE | 2017-12-23 10:13 | Cardiology Report ---
APPROVED REPORT EKG Measurement Heart [id number] Sinus tachycardia Otherwise normal ECG
--- NOTE | 2017-12-23 11:59 | Diagnostic Imaging Report ---
Indication: Tube placement Technique: XRAY Chest 1v; please note that finalized reporting delayed as the study was not sent or reported by the covering teleradiology service. Comparison: None Findings: Endotracheal tube tip approximately 3.5 cm above the matt. Enteric tube tip and side-port within the stomach. Heart size and mediastinal contours within normal limits. No focal airspace consolidation, pleural effusion or pneumothorax. No acute osseous abnormality is seen. IMPRESSION: Satisfactory endotracheal and enteric intubation. No focal airspace consolidation, pleural effusion or pneumothorax.
--- NOTE | 2017-12-24 07:52 | Discharge Summary ---
Discharge Summary Hospital Course Date of Admission Dec 21, 2017 at 15:52 Date of Discharge Dec 22, 2017 at 21:48 Admitting Diagnosis Upper GI Bleed HPI Leon Godoy is a 57 year old male who was admitted on Dec 21, 2017 at 15 :52 for Upper Gi Bleed Hospital Course summary #[id number] Discharge Discharge Disposition Patient Discharge Instructions Discharge Instructions Special Instructions I have been assigned to complete a D/C Summary on this account. I was not involved in the patient management Nidhi Reyes NP Dec 24, 2017 07:52
--- NOTE | 2017-12-24 10:15 | Discharge Summary 2 SIG ---
SUMMARY DATE OF ADMISSION: 12/21/2017 DATE OF EXPIRATION: 12/22/2017. REASON FOR ADMISSION: 57-year-old male with past medical history significant for alcoholic cirrhosis and alcoholism, presented to emergency department with projectile bright red blood emesis. . Per family, the patient was a chronic alcohol abuser and had been drinking and smoking for the last six months daily and not eating. Earlier prior to emergency department visit, the patient had a shot of vodka, and subsequently started vomiting blood. Upon presentation patient was hypotensive, tachycardic , and obtunded, no fever. Laboratory workup was significant for transaminitis. Total bilirubin 2.5, direct bilirubin 1.5, AST 214, ALT 78, hemoglobin 5.9, hematocrit 19.7, platelets count 13,000, BUN 9, and creatinine 1.6. INR 2.2. Glucose 402. Urinalysis was positive for UTI. The patient started on aggressive intravenous fluid resuscitation. NG tube was placed to gravity. The patient was typed and crossed. The patient started on octreotide and Protonix drips. The patient was orally intubated for airway protection. Central line was placed in anticipation for pressors. The patient was transferred to ICU with diagnosis of shock, hematemesis, alcoholic cirrhosis, thrombocytopenia, endotracheally intubated, alcoholism, anemia, UTI, transaminitis, hyperglycemia, and acute renal failure. CONSULTANTS: 1. Vane Harrell M.D., Internal Medicine. 2. Shawn Dee M.D., General Surgeon. 3. Shameka Frazier M.D., Gastrointestinal specialist. 4. Ronald Caballero M.D., Acid Pumper. HOSPITAL COURSE: The patient admitted to ICU. Ventilator support and pulmonary toilet provided. The patient was followed up with serial ABG. Chest x-ray after intubation revealed successful endotracheal intubation and no acute cardiopulmonary pathology. The patient was transfused with multiple units of fresh frozen plasma and packed red blood cells. The patient also received three units of plateletpheresis. The patient was on aggressive IV hydration along with pressors. Initially started on dopamine to keep mean arterial pressure above 65. However, continued to be hypotensive and subsequently Levophed and then vasopressin were ordered to maintain hemodynamic stability. SCD for DVT prophylaxis provided. GI specialist closely followed. The patient undergone on 12/22/2017 EGD with finding of bleeding esophageal varices and subsequent banding and Endoclip. Blood loss was 300 mL from GI bleeding itself. The patient was continued on octreotide and Protonix drips. The patient was kept NPO. GI recommended to consider transfer to outside facility for emergent TIPS procedure if stable, however the patient was unstable for transfer. Surgeon was consulted as well . TIPS unfortunately not available in this institution and in given condition unlikely to be of any benefit. The patient noted to have increasing metabolic acidosis. Bicarbonate was added to the IV fluids. IV fluids also included folate, thiamine, and multivitamins. The patient had multiple electrolyte abnormalities, which were attempted to be corrected during the treatment. Blood sugar remained elevated, dextrose was removed from the IV, and the patient was started on insulin drip for hyperglycemia. The patient was on empiric antibiotics for treatment of UTI. Urine culture later grew E coli. Nephrology consult was requested due to the acute renal failure. According to tassel snipper, the patient had acute renal failure secondary to hemorrhagic shock and acute tubular necrosis. Acid Pumper stated that the patient was not a candidate for dialysis at this point , given hemodynamic instability and being on maximum doses of three different pressors. He concluded that his prognosis was poor and recommended to consider comfort measures at this point and refrain from any intervention. Ventilator support provided. The patient was transfused aggressively, status post multiply units of packed red blood cells, platelets, and fresh frozen plasma. The patient kept comfortable. The patient was on fentanyl drip, titrated, as well as the Versed as needed. Ventilator settings were titrated. The patient had increasing metabolic acidosis. Rate was increased to 30. FiO2 was adjusted to keep FiO2 above 90%. The patient needed dialysis, but hemodialysis was not possible due to hemodynamic instability and no CRRT availability on this institution. The patient was unstable to transfer to another facility. Unfortunately, despite active resuscitation, the patient showed no significant improvement. He continued to deteriorate with multiple organ failure. The patient continued to be severely hypotensive despite being on maximum doses of three different pressors, and showed evidence of worsening coagulopathy. The patient undergone transfusion of multiply PRBC, FFP, and plateletpheresis. Laboratory values showed hemoglobin down to 5.0, INR 1.9. Lactic acid 26.0, severely increased LFT with AST up to 1439, ALT 209. Ammonia level 277. Creatinine increased to 2.4. CO2 7. Code status was changed to DNR/DNI on 12/22/2017 at 15:56 after discussion with the family regarding grave condition and futility of further care. The patient subsequently was found to be in asystole, no pulse, and was pronounced at 21:48 on 12/22/2017. CAUSE OF : Cardiopulmonary arrest. FINAL DIAGNOSES: 1. Acute upper GI hemorrhage. 2. Hemorrhagic shock secondary to acute upper GI bleeding. 3. Alcoholic cirrhosis. 4. Thrombocytopenia. 5. Endotracheally intubated. 6. Alcoholism. 7. Metabolic acidosis. 8. Acute renal failure secondary to shock. 9. Likely acute tubular necrosis. 10. Urinary tract infection with E. coli. 11. Anemia, status post multiply PRBC. 12. Thrombocytopenia, status post plateletpheresis transfusion. 13. Coagulopathy, status post transfusion of multiply units of fresh frozen plasma. 14. Bleeding esophageal varices, status post EGD with banding and Endoclip. 15. Hyperglycemia. 16. Electrolyte imbalances. Cj Tapia M.D. I have been assigned to dictate discharge summary on this account and I was not involved in the patient's management. Nidhi MoratayaAdirondack Regional HospitalRory N.P. DR: DAMEON JOB#: [id number] CC: LISETH
== END 2017-12-22 21:48 | disposition expired | DRG 280 ==
LOC: EDBD 14:30 → EMR 14:45 → EDBEDREQ 15:22 → MERGE 15:52 → ICU 15:52
PROC: 5A1945Z Respiratory Ventilation, 24-96 Consecutive Hours (ICD-10-PCS; 2017-12-21)
PROC: 0BH17EZ Insertion of Endotracheal Airway into Trachea, Via Natural or Artificial Opening (ICD-10-PCS; 2017-12-21)
PROC: 30233K1 Transfusion of Nonautologous Frozen Plasma into Peripheral Vein, Percutaneous Approach (ICD-10-PCS; 2017-12-21)
PROC: 30233N1 Transfusion of Nonautologous Red Blood Cells into Peripheral Vein, Percutaneous Approach (ICD-10-PCS; 2017-12-21)
PROC: 0W3P8ZZ Control Bleeding in Gastrointestinal Tract, Via Natural or Artificial Opening Endoscopic (ICD-10-PCS; principal; 2017-12-22)
PROC: 06L38CZ Occlusion of Esophageal Vein with Extraluminal Device, Via Natural or Artificial Opening Endoscopic (ICD-10-PCS; 2017-12-22)
PROC: 30233R1 Transfusion of Nonautologous Platelets into Peripheral Vein, Percutaneous Approach (ICD-10-PCS; 2017-12-22)
DX: K70.30 Alcoholic cirrhosis of liver without ascites (principal); R57.8 Other shock; N17.0 Acute kidney failure with tubular necrosis; E87.2 Acidosis; E87.8 Other disorders of electrolyte and fluid balance, not elsewhere classified; D68.4 Acquired coagulation factor deficiency; D69.6 Thrombocytopenia, unspecified; F10.20 Alcohol dependence, uncomplicated; N39.0 Urinary tract infection, site not specified; B96.20 Unspecified Escherichia coli [E. coli] as the cause of diseases classified elsewhere; D64.9 Anemia, unspecified; R73.9 Hyperglycemia, unspecified; E87.5 Hyperkalemia; F17.200 Nicotine dependence, unspecified, uncomplicated
CPT/HCPCS: 36415; 36600; 71045; 80048; 80053; 81003; 82105; 82140; 82248; 82803; 82962; 83605; 83690; 83735; 84100; 84478; 85007; 85025; 85610; 85730; 86850; 86900; 86901; 86920; 86927; 87081; 87086; 87181; 93005; 94002; 94003; 94664; 99285; J0171; J1815; J2370